=== PATIENT | female | born 1970 | race American Indian/Alaskan Native ===

== ENCOUNTER 2016-12-30 04:49 | Inpatient (IN) | payer BC, MEDICAID ==
--- NOTE | 2016-12-30 05:14 | C.PDOC ---
History Of Present Illness 46 y/o female presents to ED with complaint of vague chest discomfort since last night. Patient reports having a few cocktails and wide variety of food. Patient brought in by ambulance, given aspirin and nitro in the field. Denies URI symptoms, shortness of breath, nausea, vomiting, diaphoresis, or other associated symptoms. Time Seen by Provider: 12/30/16 05:07 Chief Complaint (Nursing): Chest Pain History Per: Patient History/Exam Limitations: no limitations Onset/Duration Of Symptoms: Days Current Symptoms Are (Timing): Still Present Quality: Other (Discomfort) Associated Symptoms: denies: Nausea, Dyspnea, Diaphoresis Nitro Therapy Administered: 2, Per EMS Recent travel outside of the [place]: No Past Medical History Reviewed: Historical Data, Nursing Documentation, Vital Signs Vital Signs: Last Vital Signs Temp 98.9 F 12/30/16 05:15 Pulse 83 12/30/16 05:15 Resp 20 12/30/16 05:15 BP 137/83 12/30/16 05:15 Pulse Ox 100 12/30/16 05:48 - Medical History PMH: HTN Family History: States: Unknown Family Hx - Social History Hx Tobacco Use: No Hx Alcohol Use: No Hx Substance Use: No - Immunization History Hx Tetanus Toxoid Vaccination: No Hx Influenza Vaccination: No Hx Pneumococcal Vaccination: No Review Of Systems Except As Marked, All Systems Reviewed And Found Negative. Constitutional: Positive for: Other (10lb weight gain recently). Negative for: Fever, Chills Cardiovascular: Positive for: Chest Pain. Negative for: Palpitations, Edema Respiratory: Negative for: Cough, Shortness of Breath, Wheezing Gastrointestinal: Negative for: Nausea, Vomiting, Abdominal Pain Skin: Negative for: Rash Neurological: Negative for: Headache, Dizziness Physical Exam - Physical Exam Appears: Non-toxic, No Acute Distress, Other (obese) Skin: Normal Color, Warm, Dry Head: Atraumatic, Normacephalic Oral Mucosa: Moist Chest: Symmetrical Cardiovascular: Rhythm Regular, No Murmur Respiratory: Normal Breath Sounds, No Rales, No Rhonchi, No Wheezing Gastrointestinal/Abdominal: Soft, No Tenderness Back: Normal Inspection Extremity: Normal ROM, Capillary Refill (< 2 sec. ) Neurological/Psych: Oriented x3, Normal Speech, Normal Cognition ED Course And Treatment - Laboratory Results Result Diagrams: 12/30/16 05:26 12/30/16 05:26 Lab Interpretation: Abnormal (trop 0.074) ECG: Interpreted By Me ECG Rhythm: Sinus Rhythm, R BBB ECG Interpretation: Abnormal (no prior to compare) Rate From EC (bpm) O2 Sat by Pulse Oximetry: 100 (RA) Pulse Ox Interpretation: Normal Medical Decision Making Medical Decision Making: story and presentation c/w angina 0630: d/w Dr. Connors- Hospitalist Anodic Operator- ok to Tele obs Ok with Lovenox and NTP, ASA given by BLS Disposition Doctor Will See Patient In The: Hospital Counseled Patient/Family Regarding: Studies Performed, Diagnosis - Disposition Disposition: HOSPITALIZED Disposition Time: 06:30 Condition: GOOD - Clinical Impression Clinical Impression: Chest discomfort, Elevated troponin level - Scribe Statement The provider has reviewed the documentation as recorded by the Chris Bryant Provider Scribe Attestation: All medical record entries made by the Scribe were at my direction and personally dictated by me. I have reviewed the chart and agree that the record accurately reflects my personal performance of the history, physical exam, medical decision making, and the department course for this patient. I have also personally directed, reviewed, and agree with the discharge instructions and disposition.
[2016-12-30 05:31] LABS: BASO % 0.3 % (0.0-2.0); EOS # 0.1 K/uL (0.0-0.7); LYMPH # 3.9 K/uL (1.0-4.3); LYMPH % 32.1 % (20.0-40.0); MEAN CELL VOLUME 89.9 fL (81.0-99.0); MEAN CORPUSCULAR HEMOGLOBIN 29.7 pg (27.0-31.0); MEAN CORPUSCULAR HGB CONC 33.1 g/dL (33.0-37.0); MEAN PLATELET VOLUME 9.6 fL (7.2-11.7); MONO # 0.7 K/uL (0.0-0.8); MONO % 5.7 % (0.0-10.0); RED CELL DISTRIBUTION WIDTH 12.7 % (11.5-14.5); WHITE BLOOD COUNT 12.1 K/uL (4.8-10.8)
[2016-12-30 05:38] LABS: RBC URINE 3 /hpf (0-3); URINE BILIRUBIN NEGATIVE (NEGATIVE); URINE BLOOD 1+ (NEGATIVE); URINE COLOR Yellow (YELLOW); URINE GLUCOSE (UA) NORMAL (Normal); URINE KETONE NEGATIVE (NEGATIVE); URINE LEUKOCYTE ESTERASE NEG Leu/uL (Negative); URINE PROTEIN NEGATIVE (NEGATIVE); URINE UROBILINOGEN NORMAL mg/dL (0.2-1.0); WBC URINE 1 /hpf (0-5)
[2016-12-30] MEDS ORDERED: Alum-Mag Hydrox-Simethicone Susp (30 mL) PO STA (05:40)
[2016-12-30 05:41] LABS: CHLORIDE 99 mmol/L (98-107)
[2016-12-30 05:42] LABS: POTASSIUM 3.1 mmol/L (3.6-5.2); SODIUM 138 mmol/L (132-148)
[2016-12-30 05:44] LABS: ALB/GLOB RATIO 1.2 (1.0-2.1); ALKALINE PHOSPHATASE 72 U/L (38-126); AST/SGOT 21 U/L (14-36); BILIRUBIN,TOTAL 0.3 mg/dL (0.2-1.3); BLOOD UREA NITROGEN 15 mg/dL (7-17); CARBON DIOXIDE 23 mmol/L (22-30); GFR AFRICAN-AMERICAN > 60; TOTAL PROTEIN 8.3 g/dL (6.3-8.3)
[2016-12-30 05:45] LABS: ALCOHOL SERUM < 10 mg/dl (0-10); ALT/SGPT 6 U/L (9-52); CALCIUM 9.1 mg/dl (8.6-10.4); GLUCOSE,RANDOM 137 mg/dL (65-105)
[2016-12-30] MEDS ORDERED: Aluminum Hydroxide/Magnesium Hydroxide Susp (30 mL) ONE (05:45)
[2016-12-30] MEDS ORDERED: Nitroglycerin 2% Ointment Foilpak UD TOP STA (06:30)
[2016-12-30] MEDS ORDERED: Nitroglycerin 2% Ointment Foilpak UD TOP ONE (06:35)
--- NOTE | 2016-12-30 07:12 | CP.PCM.HP ---
Past Patient History - Past Social History Smoking Status: Never Smoked - CARDIAC Hx Hypertension: Yes - PSYCHIATRIC Hx Substance Use: No Meds Allergies/Adverse Reactions: Allergies Allergy/AdvReac Type Severity Reaction Status Date / Time No Known Allergies Allergy Verified 12/30/16 05:03 Results - Vital Signs Recent Vital Signs: Last Vital Signs Temp 97.1 F L 12/30/16 07:01 Pulse 93 H 12/30/16 07:01 Resp 20 12/30/16 07:01 BP 145/77 12/30/16 07:01 Pulse Ox 100 12/30/16 07:01 - Labs Result Diagrams: 12/30/16 05:26 12/30/16 05:26
[2016-12-30] MEDS ORDERED: Potassium Chloride 20 mEq ER Tab PO ONE ×4 (07:30→14:56)
--- NOTE | 2016-12-30 08:13 | RAD ---
PROCEDURE: CHEST RADIOGRAPH, 1 VIEW HISTORY: SOB COMPARISON: None available. FINDINGS: LUNGS: Clear. PLEURA: No pneumothorax or pleural fluid seen. CARDIOVASCULAR: Normal. OSSEOUS STRUCTURES: No significant abnormalities. VISUALIZED UPPER ABDOMEN: Normal. OTHER FINDINGS: None. IMPRESSION: No active disease.
[2016-12-30] MEDS ORDERED: Nitroglycerin 2% Ointment Foilpak UD TOP PRN (12:20)
--- NOTE | 2016-12-30 12:55 | CP.PCM.CON ---
History of Present Illness - History of Present Illness History of Present Illness: ICU consult note for stenotype operator, Dr. Olson Patient is a 46 year old female, with PMHx of HTN and hyperlipidemia, who presents to [facility] emergency department for chest pain. Pt was brought in by ambulance, and was given aspirin/nitroglycerin in the field. Pt reports the chest pain began two days prior, "while she was painting her bathroom" and dismissed the pain as "gas pain/muscle pull." The pain worsened over the course of the two days, and was unresponsive to over the counter NSAIDs/TUMS. Pt describes the pain as an intermittent, sharp, crampy feeling, located in her mid sternal region, that does not radiate, which she initially rated as a '10/10 ,' but on exam has decreased to a 3/10. She admits associated shortness of breath when the chest pain worsened this AM. She denies ever having chest pain/ SOB like this before. She denies stressful activities/heavy lifting recently. She admits being diagnosed with hyperlipidemia 4 years ago and taking Lipitor daily, which was stopped 2 years ago by her PMD. She denies knowing the reason for why the statin was stopped. Pt denies palpitations, diaphoresis, abdominal pain, nausea, vomiting, or fever/chills. PMD: Dr. Ollie Miller PMHx: HTN (diagnosed 3 years ago), Hyperlipidemia (diagnosed 4 years ago, formerly on Lipitor 10mg, but d/c by PMD 2 yrs ago) PSHx: SHx: denies smoking, admits occasional 'social' alcohol use, denies Allergies:NKA Home meds: Losartan 12.5mg Daily, ASA 81mg Daily Review of Systems - Constitutional Constitutional: absent: Chills, Fever - EENT Eyes: absent: Change in Vision Ears: absent: Decreased Hearing Nose/Mouth/Throat: absent: Nasal Congestion, Sore Throat - Cardiovascular Cardiovascular: Chest Pain (intermittent, sharp, "cramp-like pain"; 10/10 this AM, better with NTG), Dyspnea (this AM associated with CP). absent: Dyspnea on Exertion, Edema, Leg Edema - Respiratory Respiratory: absent: Cough, Chest Congestion - Gastrointestinal Gastrointestinal: absent: Abdominal Pain, Dyspepsia, Dysphagia, Nausea, Vomiting - Genitourinary Genitourinary: absent: Dysuria Past Patient History - Past Social History Smoking Status: Never Smoked - CARDIAC Hx Hypertension: Yes - PSYCHIATRIC Hx Substance Use: No Meds Allergies/Adverse Reactions: Allergies Allergy/AdvReac Type Severity Reaction Status Date / Time No Known Allergies Allergy Verified 12/30/16 05:03 - Medications Medications: Current Medications Aspirin (Ecotrin) 81 mg PO DAILY [facility] Enoxaparin Sodium (Lovenox) 90 mg SC Q12 [facility] Famotidine (Pepcid) 20 mg IVP Q12 [facility] Last Admin: 12/30/16 11:40 Dose: 20 mg Metoprolol Tartrate (Lopressor) 25 mg PO BID [facility] Nitroglycerin (Nitro-Bid 2% Oint) 1 ea TOP Q6H PRN PRN Reason: pain Ondansetron HCl (Zofran Inj) 4 mg IVP Q6H PRN PRN Reason: Nausea/Vomiting Last Admin: 12/30/16 11:00 Dose: 4 mg Physical Exam - Constitutional Appears: Non-toxic, No Acute Distress Additional comments: Excess body habitus noted - Head Exam Head Exam: ATRAUMATIC, NORMAL INSPECTION, NORMOCEPHALIC - Eye Exam Eye Exam: EOMI Pupil Exam: PERRL - ENT Exam ENT Exam: Mucous Membranes Moist - Neck Exam Neck exam: Positive for: Normal Inspection Additional comments: no jvd - Respiratory Exam Respiratory Exam: Clear to Auscultation Bilateral, NORMAL BREATHING PATTERN. absent: Decreased Breath Sounds, Rales, Rhonchi, Wheezes - Cardiovascular Exam Cardiovascular Exam: REGULAR RHYTHM, +S1, +S2 - GI/Abdominal Exam GI & Abdominal Exam: Normal Bowel Sounds, Soft. absent: Tenderness - Extremities Exam Extremities exam: Positive for: normal inspection, pedal pulses present. Negative for: pedal edema, tenderness - Back Exam Back exam: tenderness (T5-T10 TTP). absent: rash noted - Neurological Exam Neurological exam: Alert, CN II-XII Intact, Oriented x3 - Psychiatric Exam Psychiatric exam: Normal Affect, Normal Mood - Skin Skin Exam: Dry, Normal Color, Warm Results - Vital Signs Recent Vital Signs: Last Vital Signs Temp 97.1 F L 12/30/16 07:01 Pulse 84 12/30/16 09:00 Resp 16 12/30/16 09:00 BP 143/69 12/30/16 09:00 Pulse Ox 100 12/30/16 09:00 - Labs Result Diagrams: 12/30/16 05:26 12/30/16 05:26 Labs: Laboratory Results - last 24 hr 12/30/16 11:46 Total Creatine Kinase 1021 H CK-MB (Mass) 36.0 H Troponin I, Quant 5.0100 H* Assessment & Plan - Assessment and Plan (Free Text) Assessment: 46F with PMHx of HTN, Hyperlipidemia, who presents to ED for chest pain. 2nd troponin elevated. Plan: Pt STATUS: Full code, Admitted to ICU Neuro: AAOx3 CV: ACS Elevated troponin (0.074 > 5.01) - f/u third troponin EKG (12/30/16): NSR. Possible Lt atrial enlargement. Incomplete RBBB. LVH with repolarization abnormality. Nitroglycerin and ASA 325mg PO in field Start Crestor 20mg PO Daily, ASA 325mg PO Daily, Lopressor 25mg PO BID Continue home Losartan 12.5mg PO daily BNP: 104 f/u ECHO f/u Lipid panel, HgbA1c, D-dimer, PT/PTT Cardiology Consult: Dr. Johnson, help appreciated - f/u reccs Hx HTN - continue home Losartan 12.5mg PO daily - start Lopressor 25mg PO BID GI: Heart Healthy Diet Nausea Prophylaxis - Zofran 4mg IV PRN Pulm: O2 sat: 100% on rm air CXR (12/30/16): NAD /Renal: NS @ 100ml/hr Hypokalemia - 3.1 on AM labs - Kdur 40mg x 2 UA: 1+ blood, LE/nitrate negative - HCG negative UDS: negative Prophylaxis: SCDs Pepcid 20mg IV Q12 Lovenox 90mg SC Q12
[2016-12-30] MEDS ORDERED: Enoxaparin 60 mg Syringe ONE (13:00)
[2016-12-30] MEDS ORDERED: Enoxaparin 30 mg Syringe ONE (13:00)
[2016-12-30] MEDS ORDERED: Enoxaparin 80 mg Syringe SC SCH (13:00)
--- NOTE | 2016-12-30 13:31 | CARD ---
APPROVED REPORT EKG Measurement Heart [id number] <Conclusion> Normal sinus rhythm Possible Left atrial enlargement Incomplete right bundle branch block Left ventricular hypertrophy with repolarization abnormality Abnormal ECG
[2016-12-30] MEDS ORDERED: Potassium Chloride 20 mEq ER Tab PO SCH (14:30)
--- NOTE | 2016-12-30 14:46 | CP.PCM.HP ---
<Jese Claire - Last Filed: 12/30/16 14:43> History of Present Illness - History of Present Illness History of Present Illness: H&P note for hospitalist, Dr. Horn Patient is a 46 year old female, with PMHx of HTN and hyperlipidemia, who presents to [facility] emergency department for chest pain. Pt was brought in by ambulance, and was given aspirin/nitroglycerin in the field. Pt reports the chest pain began two days prior, "while she was painting her bathroom" and dismissed the pain as "gas pain/muscle pull." The pain worsened over the course of the two days, and was unresponsive to over the counter NSAIDs/TUMS. Pt describes the pain as an intermittent, sharp, crampy feeling, located in her mid sternal region, that does not radiate, which she initially rated as a '10/10 ,' but on exam has decreased to a 3/10. She admits associated shortness of breath when the chest pain worsened this AM. She denies ever having chest pain/ SOB like this before. She denies stressful activities/heavy lifting recently. She admits being diagnosed with hyperlipidemia 4 years ago and taking Lipitor daily, which was stopped 2 years ago by her PMD. She denies knowing the reason for why the statin was stopped. Pt denies palpitations, diaphoresis, abdominal pain, nausea, vomiting, or fever/chills. PMD: Dr. Ollie Miller PMHx: HTN (diagnosed 3 years ago), Hyperlipidemia (diagnosed 4 years ago, formerly on Lipitor 10mg, but d/c by PMD 2 yrs ago) PSHx: SHx: denies smoking, admits occasional 'social' alcohol use, denies Allergies:NKA Home meds: Losartan 12.5mg Daily, ASA 81mg Daily Present on Admission - Present on Admission Any Indicators Present on Admission: No Review of Systems - Constitutional Constitutional: absent: Chills, Fever - EENT Eyes: absent: Change in Vision Ears: absent: Decreased Hearing Nose/Mouth/Throat: absent: Nasal Congestion, Sore Throat - Cardiovascular Cardiovascular: Chest Pain (intermittent, sharp, "cramp-like pain"; 10/10 this AM, better with NTG), Dyspnea (this AM associated with CP). absent: Edema, Leg Edema - Respiratory Respiratory: Dyspnea. absent: Dyspnea on Exertion - Gastrointestinal Gastrointestinal: absent: Abdominal Pain, Nausea, Vomiting - Genitourinary Genitourinary: absent: Dysuria - Musculoskeletal Musculoskeletal: absent: Back Pain, Numbness, Tingling - Neurological Neurological: absent: Confusion, Tingling, Weakness - Endocrine Endocrine: absent: Polydipsia, Polyphagia, Polyuria Past Patient History - Past Social History Smoking Status: Never Smoked - CARDIAC Hx Hypertension: Yes - PSYCHIATRIC Hx Substance Use: No Meds Allergies/Adverse Reactions: Allergies Allergy/AdvReac Type Severity Reaction Status Date / Time No Known Allergies Allergy Verified 12/30/16 05:03 Physical Exam - Constitutional Appears: Non-toxic, No Acute Distress Additional comments: Excess body habitus noted - Head Exam Head Exam: absent: ATRAUMATIC, NORMAL INSPECTION, NORMOCEPHALIC - Eye Exam Eye Exam: EOMI Pupil Exam: PERRL - Neck Exam Neck exam: Positive for: Normal Inspection Additional comments: no jvd - Respiratory Exam Respiratory Exam: Clear to Auscultation Bilateral, NORMAL BREATHING PATTERN. absent: Decreased Breath Sounds, Rales, Rhonchi, Wheezes - Cardiovascular Exam Cardiovascular Exam: REGULAR RHYTHM, +S1, +S2 - GI/Abdominal Exam GI & Abdominal Exam: Normal Bowel Sounds, Soft. absent: Tenderness - Extremities Exam Extremities exam: Positive for: normal inspection, pedal pulses present. Negative for: pedal edema, tenderness - Back Exam Back exam: NORMAL INSPECTION - Neurological Exam Neurological exam: Alert, CN II-XII Intact, Oriented x3 - Psychiatric Exam Psychiatric exam: Anxious (appropriate given diagnosis) - Skin Skin Exam: Normal Color, Warm Results - Vital Signs Recent Vital Signs: Last Vital Signs Temp 97.5 F L 12/30/16 13:00 Pulse 74 12/30/16 13:00 Resp 16 12/30/16 13:00 BP 147/66 12/30/16 13:00 Pulse Ox 100 12/30/16 13:00 - Labs Result Diagrams: 12/30/16 05:26 12/30/16 05:26 Labs: Laboratory Results - last 24 hr 12/30/16 11:46 Total Creatine Kinase 1021 H CK-MB (Mass) 36.0 H Troponin I, Quant 5.0100 H* Assessment & Plan - Assessment and Plan (Free Text) Assessment: 46F with PMHx of HTN, Hyperlipidemia, who presents to ED for chest pain. 2nd troponin elevated. NSTEMI. Plan: Pt Status: Full code, Admit to ICU ACS Elevated troponin (0.074 > 5.01), CKMB 36, CPK (1021) - f/u 3rd ANTONIO EKG (12/30/16): NSR. Possible Lt atrial enlargement. Incomplete RBBB. LVH with repolarization abnormality. CXR (12/30/16): NAD BNP: 104 UDS negative f/u ECHO f/u Lipid panel, HgbA1c, D-dimer, PT/PTT Nitroglycerin and ASA 325mg PO in field Start Crestor 20mg PO Daily, ASA 325mg PO Daily, Lopressor 25mg PO BID Continue home Losartan 12.5mg PO daily Cardiology Consult: Dr. Johnson, cullen appreciated - f/u reccs Leukocytosis afebrile WBC 12.1 on AM labs CXR (12/30/16): NAD HTN Normotensive in ED - continue home Losartan 12.5mg PO daily - start Lopressor 25mg PO BID Electrolyte abnormalities Hypokalemia - 3.1 on AM labs - Kdur 40mg x 2 Prophylaxis: SCDs Pepcid 20mg IV Q12 Lovenox 90mg SC Q12 Heart Healthy Diet <KoryWilfrid M - Last Filed: 12/30/16 15:12> Results - Vital Signs Recent Vital Signs: Last Vital Signs Temp 97.5 F L 12/30/16 13:00 Pulse 79 12/30/16 15:05 Resp 16 12/30/16 15:05 BP 158/80 H 12/30/16 15:05 Pulse Ox 100 12/30/16 15:05 - Labs Result Diagrams: 12/30/16 05:26 12/30/16 05:26 Labs: Laboratory Results - last 24 hr 12/30/16 11:46 Total Creatine Kinase 1021 H CK-MB (Mass) 36.0 H Troponin I, Quant 5.0100 H* Attending/Attestation - Attestation I have personally seen and examined this patient.: Yes I have fully participated in the care of the patient.: Yes I have reviewed all pertinent clinical information: Yes Notes (Text): 12/30/16 15:10 Patient was seen and examined at bedside with the resident at the time of admission Patient still complains of chest pain that is radiating to the back. Patient also has nausea and vomiting. Troponins were repeated and it increased to 5. Patient started on ACS protocol with the therapeutic Lovenox, aspirin, beta lilly, statin. Patient transferred to ICU. Cardiology consultation requested. Follow-up further recommendations of cardiology. Discussed with ICU attending and ICU resident. Discussed with the admitting resident.
--- NOTE | 2016-12-30 15:31 | CARD ---
APPROVED REPORT EXAM: Two-dimensional and M-mode echocardiogram with Doppler and color Doppler. Other Information Quality : ExcellentGoodRhythm : NSR INDICATION Chest Pain TROPONN M-Mode DIMENSIONS RVDd2.01 (2.1-3.2cm)Left Atrium (MM)4.16 (2.5-4.0cm) IVSd0.90 (0.7-1.1cm)Aortic Root2.71 (2.2-3.7cm) LVDd5.45 (4.0-5.6cm)Aortic Cusp Exc.1.94 (1.5-2.0cm) PWd0.76 (0.7-1.1cm)FS (%) 31 % LVDs3.78 (2.0-3.8cm)LVEF (%)58 (>50%) Mitral Valve MV E Ocqzduzy92.6cm/sMV A Oblnwqur76.7cm/sE/A ratio1.0 TDI E/Lateral E'0.0E/Medial E'0.0 Tricuspid Valve TR Peak Edjnawhw450wl/sTR Peak [id number] LEFT VENTRICLE The left ventricle is normal size. There is normal left ventricular wall thickness. The left ventricular function is normal. The left ventricular ejection fraction is within the normal range. There is normal LV segmental wall motion. Transmitral Doppler flow pattern is Grade I-abnormal relaxation pattern. RIGHT VENTRICLE The right ventricle is normal size. There is normal right ventricular wall thickness. The right ventricular systolic function is normal. ATRIA The left atrium size is normal. The right atrium size is normal. AORTIC VALVE The aortic valve is normal in structure. No aortic regurgitation is present. MITRAL VALVE The mitral valve is mildly thickened. Mitral regurgitation is trace. TRICUSPID VALVE There is moderate to severe tricuspid regurgitation. There is moderate to severe pulmonary hypertension. GREAT VESSELS The aortic root is normal in size. The IVC is normal in size and collapses >50% with inspiration. PERICARDIAL EFFUSION There is no pericardial effusion. <Conclusion> The left ventricle is normal size. There is normal left ventricular wall thickness. The left ventricular function is normal. The left ventricular ejection fraction is within the normal range. There is normal LV segmental wall motion. Transmitral Doppler flow pattern is Grade I-abnormal relaxation pattern. There is moderate to severe tricuspid regurgitation. There is moderate to severe pulmonary hypertension.
[2016-12-30] MEDS: Enoxaparin 100 mg Syringe SC SCH (22:05)
--- NOTE | 2016-12-30 22:07 | CP.PCM.CON ---
History of Present Illness - History of Present Illness History of Present Illness: 46 year old female admitted with chest pain for the the last three days in the right precordial region inconsistently related to exertion moderate to severe in intensity without radiation; unrelated to ingestion inspiration arm movement ; she travelled to [place] ignoring the pain; due to persistence she presented to the ER at [facility] On questioning did report some shortness of breath Denied palpitations dizziness syncope edema, dysarthria leg claudication renal failure She does not exercise but did report using a bike some days back Systems review: weight gain Past medical history significant for systemic hypertension for the last seven years;hyprlipidemia x 4 years Past surgical: She denied smoking alcohol or drug abuse Medications; aspirin statin Allergies: "sinus' She had five uneventful pregnancies and a ; her last delivery was in 2014; her periods are regular; last menstrual period was 2 days back She works for the [email or web address] Mother at age 73 of a 'heart attack' Father she is unaware She had 12 siblings; a brother of 'aids' and a sister from liver failure Past Patient History - Past Medical History & Family History Past Medical History?: Yes - Past Social History Smoking Status: Never Smoked - CARDIAC Hx Cardiac Disorders: Yes Hx Hypertension: Yes Other/Comment: hyperlipidemia - PULMONARY Hx Respiratory Disorders: No - NEUROLOGICAL Hx Neurological Disorder: No - HEENT Hx HEENT Problems: No - RENAL Hx Chronic Kidney Disease: No - ENDOCRINE/METABOLIC Hx Endocrine Disorders: No - HEMATOLOGICAL/ONCOLOGICAL Hx Blood Disorders: No - INTEGUMENTARY Hx Dermatological Problems: No - MUSCULOSKELETAL/RHEUMATOLOGICAL Hx Musculoskeletal Disorders: No Hx Falls: No - GASTROINTESTINAL Hx Gastrointestinal Disorders: No - GENITOURINARY/GYNECOLOGICAL Hx Genitourinary Disorders: No - PSYCHIATRIC Hx Psychophysiologic Disorder: No Hx Substance Use: No - SURGICAL HISTORY Hx Surgeries: Yes Hx Section: Yes (2 years ago) - ANESTHESIA Hx Anesthesia: Yes Hx Anesthesia Reactions: No Hx Malignant Hyperthermia: No Has any member of the family had a problem w/ anesthesia?: No Meds Allergies/Adverse Reactions: Allergies Allergy/AdvReac Type Severity Reaction Status Date / Time No Known Allergies Allergy Verified 12/30/16 05:03 - Medications Medications: Current Medications Aspirin (Ecotrin) 81 mg PO DAILY [facility] Enoxaparin Sodium (Lovenox) 90 mg SC Q12 [facility] Last Admin: 12/30/16 22:05 Dose: 90 mg Famotidine (Pepcid) 20 mg IVP Q12 [facility] Last Admin: 12/30/16 22:05 Dose: 20 mg Losartan Potassium (Cozaar) 25 mg PO DAILY [facility] Metoprolol Tartrate (Lopressor) 50 mg PO BID [facility] Nitroglycerin (Nitro-Bid 2% Oint) 1 ea TOP Q6H PRN PRN Reason: pain Ondansetron HCl (Zofran Inj) 4 mg IVP Q6H PRN PRN Reason: Nausea/Vomiting Last Admin: 12/30/16 20:35 Dose: 4 mg Physical Exam - Eye Exam Eye Exam: EOMI - ENT Exam ENT Exam: Mucous Membranes Moist, Normal Exam - Neck Exam Neck exam: Positive for: Normal Inspection Additional comments: Normal venous pressure No neck bruits No goiter - Respiratory Exam Additional comments: Trachea central Normal percussion note Normal breath sounds - Cardiovascular Exam Additional comments: PMI could not be localized No parasternal heave No chest tenderness No scars/implanted device Normal heart sounds No rub - GI/Abdominal Exam GI & Abdominal Exam: Normal Bowel Sounds, Soft - Extremities Exam Additional comments: No edema Distal pulse +=+ No clubbing - Neurological Exam Neurological exam: Oriented x3 Results - Vital Signs Recent Vital Signs: Last Vital Signs Temp 98 F 12/30/16 20:00 Pulse 65 12/30/16 21:30 Resp 25 H 12/30/16 21:30 BP 143/80 12/30/16 21:30 Pulse Ox 100 12/30/16 21:30 - Labs Result Diagrams: 12/30/16 05:26 12/30/16 22:43 Labs: Laboratory Results - last 24 hr 12/30/16 12/30/16 11:46 17:00 D-Dimer, Quantitative < 200 Total Creatine Kinase 1021 H 2355 H CK-MB (Mass) 36.0 H 55.0 H Troponin I, Quant 5.0100 H* 15.3000 H* - EKG Data EKG comments: Sinus ?left atrial enlargement LVH - Impressions Impression: Echo: Trace pericardial effusion prominent coronary sinus Pulmonary hypertension moderate tricuspid incompetence Assessment & Plan - Assessment and Plan (Free Text) Assessment: Cased reviewed Intriguing chest pain syndrome on a background of soft vascular risk factors in a premenopausal woman with unremarkable physical examination, negative tox screen normal D dimers, subtle EKG changes, normal regional and global left ventricular function, normal diastolic pressures, moderate pulmonary hypertension, normal right sided chamber dimensions, absence of an intracardiac shunt This profile with disparate data points is difficult to reconcile Chest pain syndrome: likely cardiac/pericardial although no definitive pleuritic component; negative d-dimers argues against PE; no suggestion of dissection Elevated serum troponin: disproportionate to her symptoms EKG changes and LV systolic function; no definitive suggestion of pulmonary embolism, stress cardiomyopathy, chest trauma or a toxic factor; likely myopericarditis if coronary disease is excluded; of note trace pericardial effusion Pulmonary hypertension: a major clinical disconnect; likely a 'primary' pulmonary process; ?vascular; no suggestion of airway/parenchymal/obesity/sleep apnea Systemic hypertension: mild; 'essential' Hyperlipidemia Obesity Prominent coronary sinus: differentials include a left sided SVC and a rare unroofed ASD Plan Continue with aspriin plavix heparin/lovenox statin and beta blockers CT angio with PE protocol if negative Right/Left cardiac cath
[2016-12-30 22:59] LABS: CHLORIDE 99 mmol/L (98-107); SODIUM 136 mmol/L (132-148)
[2016-12-30 23:00] LABS: POTASSIUM 3.8 mmol/L (3.6-5.2)
[2016-12-30 23:02] LABS: CARBON DIOXIDE 23 mmol/L (22-30); GFR AFRICAN-AMERICAN > 60
[2016-12-30 23:03] LABS: BLOOD UREA NITROGEN 9 mg/dL (7-17); CALCIUM 9.9 mg/dl (8.6-10.4); GLUCOSE,RANDOM 139 mg/dL (65-105); MAGNESIUM 2.2 mg/dL (1.6-2.3); PHOSPHOROUS 3.4 mg/dL (2.5-4.5)
[2016-12-31 06:48] LABS: CHLORIDE 100 mmol/L (98-107); SODIUM 138 mmol/L (132-148)
[2016-12-31 06:50] LABS: CHOLESTEROL 304 mg/dL (0-199); GFR AFRICAN-AMERICAN > 60
[2016-12-31 06:51] LABS: ALB/GLOB RATIO 1.2 (1.0-2.1); ALKALINE PHOSPHATASE 75 U/L (38-126); ALT/SGPT 28 U/L (9-52); AST/SGOT 244 U/L (14-36); BILIRUBIN,TOTAL 0.6 mg/dL (0.2-1.3); BLOOD UREA NITROGEN 10 mg/dL (7-17); CARBON DIOXIDE 26 mmol/L (22-30); GLUCOSE,RANDOM 126 mg/dL (65-105); TOTAL PROTEIN 8.8 g/dL (6.3-8.3)
[2016-12-31 06:52] LABS: CALCIUM 9.5 mg/dl (8.6-10.4); MAGNESIUM 2.2 mg/dL (1.6-2.3); PHOSPHOROUS 3.8 mg/dL (2.5-4.5)
[2016-12-31 06:53] LABS: BASO % 0.3 % (0.0-2.0); EOS % 0.3 % (0.0-4.0); HEMATOCRIT 38.5 % (34.0-47.0); LYMPH # 2.8 K/uL (1.0-4.3); LYMPH % 21.6 % (20.0-40.0); MEAN CELL VOLUME 90.7 fL (81.0-99.0); MEAN CORPUSCULAR HEMOGLOBIN 29.4 pg (27.0-31.0); MEAN CORPUSCULAR HGB CONC 32.4 g/dL (33.0-37.0); MONO # 0.8 K/uL (0.0-0.8); MONO % 6.4 % (0.0-10.0); RED CELL DISTRIBUTION WIDTH 13.2 % (11.5-14.5); WHITE BLOOD COUNT 13.1 K/uL (4.8-10.8)
[2016-12-31] MEDS: Enoxaparin 100 mg Syringe SC SCH ×2 (09:06→22:30)
[2016-12-31 09:15] LABS: INR 1.1
[2016-12-31] MEDS ORDERED: Losartan 12.5 MG TAB PO SCH (10:00)
--- NOTE | 2016-12-31 11:57 | CP.CCUPN ---
Addendum entered and electronically signed by Jese Claire DO 12/31/16 17:24: CT Angio: negative for PE Pt is tentatively scheduled for Cardiac Cath at 1pm tomorrow (01/01) with Dr. Fletcher Original Note: <Jese Claire - Last Filed: 12/31/16 14:46> CCU Subjective - Physician Review Subjective (Free Text): 12/31/16 11:51 Pt seen and examined at bedside. She denies chest pain, palpitations, SOB, abdominal pain, nausea, this AM. Hemoglobin A1c came back elevated, and pt was made aware of diagnosis of diabetes. Lengthy discussion was had with pt about importance of diet change, exercise, and medication moving forward. Pt is for CT Angio to r/o PE today per recommendation of cardiology. Pt is low risk per Wells criteria, but severe pulmonary hypertension was seen on ECHO. Pt' s at bedside states pt snores often, so she will be given prescription for outpatient sleep study. Critical Care Time Spent (in minutes): 45 CCU Objective - Vital Signs / Intake & Output Vital Signs (Last 4 hours): Vital Signs Temp Pulse Resp BP Pulse Ox 12/31/16 11:01 61 17 109/66 100 12/31/16 11:00 61 17 100 12/31/16 10:01 62 16 126/84 100 12/31/16 10:00 64 13 100 12/31/16 09:01 78 20 127/72 100 12/31/16 09:00 73 16 100 12/31/16 08:01 68 18 108/69 100 12/31/16 08:00 98.1 F 66 24 100 Intake and Output (Last 8hrs): Intake & Output 12/30/16 12/31/16 12/31/16 22:59 06:59 14:59 Intake Total 600 50 Output Total 350 350 200 Balance 250 -350 -150 Weight 194 lb 0.108 oz Intake: Oral 600 50 Output: Urine 350 350 200 Urine, Voided 350 350 200 Other: Voiding Method Bedpan # Voids Urine, Voided 2 1 - Physical Exam Narrative Physical Exam (Free Text): 12/31/16 11:58 excess body habitus is noted Head: Positive for: Atraumatic, Normocephalic Pupils: Positive for: PERRL Extroacular Muscles: Positive for: EOMI Conjunctiva: Positive for: Normal Mouth: Positive for: Moist Mucous Membranes Neck: Positive for: Normal Range of Motion. Negative for: JVD Respiratory/Chest: Positive for: Clear to Auscultation. Negative for: Respiratory Distress, Accessory Muscle Use, Rales, Retracting, Rhonchi Cardiovascular: Positive for: Regular Rate and Rhythm, Normal S1, S2. Negative for: Murmurs Abdomen: Positive for: Normal Bowel Sounds. Negative for: Tenderness, Distention Upper Extremity: Positive for: Normal Inspection. Negative for: Edema Lower Extremity: Positive for: Normal Inspection. Negative for: Edema Neurological: Positive for: CN II-XII Intact, Speech Normal Skin: Positive for: Warm, Dry Psychiatric: Positive for: Alert, Oriented x 3 - Medications Active Medications: Active Medications Generic Name Dose Route Start Last Admin Trade Name Freq PRN Reason Stop Dose Admin Aspirin 81 mg 12/31/16 10:00 12/31/16 09:06 Ecotrin PO 81 mg DAILY GUY Administration Enoxaparin Sodium 90 mg 12/30/16 22:00 12/31/16 09:06 Lovenox SC 90 mg Q12 GUY Administration Famotidine 20 mg 12/30/16 11:15 12/31/16 09:06 Pepcid IVP 20 mg Q12 GUY Administration Losartan Potassium 25 mg 12/30/16 18:46 12/31/16 09:06 Cozaar PO 25 mg DAILY GUY Administration Metoprolol Tartrate 50 mg 12/30/16 18:45 12/31/16 09:06 Lopressor PO 50 mg BID GUY Administration Nitroglycerin 1 ea 12/30/16 12:20 Nitro-Bid 2% Oint TOP Q6H PRN pain Ondansetron HCl 4 mg 12/30/16 11:15 12/30/16 20:35 Zofran Inj IVP 4 mg Q6H PRN Administration Nausea/Vomiting - Patient Studies Lab Studies: Lab Studies 12/31/16 12/31/16 12/31/16 Range/Units 06:30 06:30 06:30 WBC (4.8-10.8) K/uL RBC (3.80-5.20) Mil/uL Hgb (11.0-16.0) g/dL Hct (34.0-47.0) % MCV (81.0-99.0) fL MCH (27.0-31.0) pg MCHC (33.0-37.0) g/dL RDW (11.5-14.5) % Plt Count (130-400) K/uL MPV (7.2-11.7) fL Neut % (Auto) (50.0-75.0) % Lymph % (Auto) (20.0-40.0) % Jones % (Auto) (0.0-10.0) % Eos % (Auto) (0.0-4.0) % Baso % (Auto) (0.0-2.0) % Neut # (1.8-7.0) K/uL Lymph # (1.0-4.3) K/uL Jones # (0.0-0.8) K/uL Eos # (0.0-0.7) K/uL Baso # (0.0-0.2) K/uL PT (9.7-12.2) SECONDS INR APTT (21-34) SECONDS D-Dimer, Quantitative (0-243) ng/mlDDU Sodium 138 (132-148) mmol/L Potassium 4.0 (3.6-5.2) mmol/L Chloride 100 (98-107) mmol/L Carbon Dioxide 26 (22-30) mmol/L Anion Gap 17 (10-20) BUN 10 (7-17) mg/dL Creatinine 0.7 (0.7-1.2) MG/DL Est GFR ( Amer) > 60 Est GFR (Non-Af Amer) > 60 Random Glucose 126 H (65-105) mg/dL Hemoglobin A1c 6.5 (4.2-6.5) % Calcium 9.5 (8.6-10.4) mg/dl Phosphorus 3.8 (2.5-4.5) mg/dL Magnesium 2.2 (1.6-2.3) mg/dL Total Bilirubin 0.6 (0.2-1.3) mg/dL AST 244 H D (14-36) U/L ALT 28 (9-52) U/L Alkaline Phosphatase 75 (38-126) U/L Total Creatine Kinase (30-135) U/L CK-MB (Mass) (0.0-3.38) ng/mL Troponin I, Quant (0.00-0.120) ng/mL Total Protein 8.8 H (6.3-8.3) g/dL Albumin 4.8 (3.5-5.0) g/dL Globulin 4.1 H (2.2-3.9) gm/dL Albumin/Globulin Ratio 1.2 (1.0-2.1) Triglycerides 151 H (0-149) mg/dL Cholesterol 304 H (0-199) mg/dL LDL Cholesterol Direct 199 H (0-129) mg/dL HDL Cholesterol 49 (30-70) mg/dL 12/31/16 12/31/16 12/30/16 Range/Units 06:30 06:30 22:43 WBC 13.1 H (4.8-10.8) K/uL RBC 4.24 (3.80-5.20) Mil/uL Hgb 12.5 (11.0-16.0) g/dL Hct 38.5 (34.0-47.0) % MCV 90.7 (81.0-99.0) fL MCH 29.4 (27.0-31.0) pg MCHC 32.4 L (33.0-37.0) g/dL RDW 13.2 (11.5-14.5) % Plt Count 278 (130-400) K/uL MPV 10.0 (7.2-11.7) fL Neut % (Auto) 71.4 (50.0-75.0) % Lymph % (Auto) 21.6 (20.0-40.0) % Jones % (Auto) 6.4 (0.0-10.0) % Eos % (Auto) 0.3 (0.0-4.0) % Baso % (Auto) 0.3 (0.0-2.0) % Neut # 9.4 H (1.8-7.0) K/uL Lymph # 2.8 (1.0-4.3) K/uL Jones # 0.8 (0.0-0.8) K/uL Eos # 0.0 (0.0-0.7) K/uL Baso # 0.0 (0.0-0.2) K/uL PT 12.7 H (9.7-12.2) SECONDS INR 1.1 APTT 38 H (21-34) SECONDS D-Dimer, Quantitative (0-243) ng/mlDDU Sodium 136 (132-148) mmol/L Potassium 3.8 (3.6-5.2) mmol/L Chloride 99 (98-107) mmol/L Carbon Dioxide 23 (22-30) mmol/L Anion Gap 18 (10-20) BUN 9 (7-17) mg/dL Creatinine 0.6 L (0.7-1.2) MG/DL Est GFR ( Amer) > 60 Est GFR (Non-Af Amer) > 60 Random Glucose 139 H (65-105) mg/dL Hemoglobin A1c (4.2-6.5) % Calcium 9.9 (8.6-10.4) mg/dl Phosphorus 3.4 (2.5-4.5) mg/dL Magnesium 2.2 (1.6-2.3) mg/dL Total Bilirubin (0.2-1.3) mg/dL AST (14-36) U/L ALT (9-52) U/L Alkaline Phosphatase (38-126) U/L Total Creatine Kinase 2954 H (30-135) U/L CK-MB (Mass) 39.7 H (0.0-3.38) ng/mL Troponin I, Quant 22.0000 H* (0.00-0.120) ng/mL Total Protein (6.3-8.3) g/dL Albumin (3.5-5.0) g/dL Globulin (2.2-3.9) gm/dL Albumin/Globulin Ratio (1.0-2.1) Triglycerides (0-149) mg/dL Cholesterol (0-199) mg/dL LDL Cholesterol Direct (0-129) mg/dL HDL Cholesterol (30-70) mg/dL 12/30/16 12/30/16 12/30/16 Range/Units 17:00 17:00 11:46 WBC (4.8-10.8) K/uL RBC (3.80-5.20) Mil/uL Hgb (11.0-16.0) g/dL Hct (34.0-47.0) % MCV (81.0-99.0) fL MCH (27.0-31.0) pg MCHC (33.0-37.0) g/dL RDW (11.5-14.5) % Plt Count (130-400) K/uL MPV (7.2-11.7) fL Neut % (Auto) (50.0-75.0) % Lymph % (Auto) (20.0-40.0) % Jones % (Auto) (0.0-10.0) % Eos % (Auto) (0.0-4.0) % Baso % (Auto) (0.0-2.0) % Neut # (1.8-7.0) K/uL Lymph # (1.0-4.3) K/uL Jones # (0.0-0.8) K/uL Eos # (0.0-0.7) K/uL Baso # (0.0-0.2) K/uL PT (9.7-12.2) SECONDS INR APTT (21-34) SECONDS D-Dimer, Quantitative < 200 (0-243) ng/mlDDU Sodium (132-148) mmol/L Potassium (3.6-5.2) mmol/L Chloride (98-107) mmol/L Carbon Dioxide (22-30) mmol/L Anion Gap (10-20) BUN (7-17) mg/dL Creatinine (0.7-1.2) MG/DL Est GFR ( Amer) Est GFR (Non-Af Amer) Random Glucose (65-105) mg/dL Hemoglobin A1c (4.2-6.5) % Calcium (8.6-10.4) mg/dl Phosphorus (2.5-4.5) mg/dL Magnesium (1.6-2.3) mg/dL Total Bilirubin (0.2-1.3) mg/dL AST (14-36) U/L ALT (9-52) U/L Alkaline Phosphatase (38-126) U/L Total Creatine Kinase 2355 H 1021 H (30-135) U/L CK-MB (Mass) 55.0 H 36.0 H (0.0-3.38) ng/mL Troponin I, Quant 15.3000 H* 5.0100 H* (0.00-0.120) ng/mL Total Protein (6.3-8.3) g/dL Albumin (3.5-5.0) g/dL Globulin (2.2-3.9) gm/dL Albumin/Globulin Ratio (1.0-2.1) Triglycerides (0-149) mg/dL Cholesterol (0-199) mg/dL LDL Cholesterol Direct (0-129) mg/dL HDL Cholesterol (30-70) mg/dL Laboratory Results - last 24 hr 12/30/16 12/30/16 12/30/16 11:46 17:00 17:00 WBC RBC Hgb Hct MCV MCH MCHC RDW Plt Count MPV Neut % (Auto) Lymph % (Auto) Jones % (Auto) Eos % (Auto) Baso % (Auto) Neut # Lymph # Jones # Eos # Baso # PT INR APTT D-Dimer, Quantitative < 200 Sodium Potassium Chloride Carbon Dioxide Anion Gap BUN Creatinine Est GFR ( Amer) Est GFR (Non-Af Amer) Random Glucose Hemoglobin A1c Calcium Phosphorus Magnesium Total Bilirubin AST ALT Alkaline Phosphatase Total Creatine Kinase 1021 H 2355 H CK-MB (Mass) 36.0 H 55.0 H Troponin I, Quant 5.0100 H* 15.3000 H* Total Protein Albumin Globulin Albumin/Globulin Ratio Triglycerides Cholesterol LDL Cholesterol Direct HDL Cholesterol 12/30/16 12/31/16 12/31/16 22:43 06:30 06:30 WBC 13.1 H RBC 4.24 Hgb 12.5 Hct 38.5 MCV 90.7 MCH 29.4 MCHC 32.4 L RDW 13.2 Plt Count 278 MPV 10.0 Neut % (Auto) 71.4 Lymph % (Auto) 21.6 Jones % (Auto) 6.4 Eos % (Auto) 0.3 Baso % (Auto) 0.3 Neut # 9.4 H Lymph # 2.8 Jones # 0.8 Eos # 0.0 Baso # 0.0 PT 12.7 H INR 1.1 APTT 38 H D-Dimer, Quantitative Sodium 136 Potassium 3.8 Chloride 99 Carbon Dioxide 23 Anion Gap 18 BUN 9 Creatinine 0.6 L Est GFR ( Amer) > 60 Est GFR (Non-Af Amer) > 60 Random Glucose 139 H Hemoglobin A1c Calcium 9.9 Phosphorus 3.4 Magnesium 2.2 Total Bilirubin AST ALT Alkaline Phosphatase Total Creatine Kinase 2954 H CK-MB (Mass) 39.7 H Troponin I, Quant 22.0000 H* Total Protein Albumin Globulin Albumin/Globulin Ratio Triglycerides Cholesterol LDL Cholesterol Direct HDL Cholesterol 12/31/16 12/31/16 12/31/16 06:30 06:30 06:30 WBC RBC Hgb Hct MCV MCH MCHC RDW Plt Count MPV Neut % (Auto) Lymph % (Auto) Jones % (Auto) Eos % (Auto) Baso % (Auto) Neut # Lymph # Jones # Eos # Baso # PT INR APTT D-Dimer, Quantitative Sodium 138 Potassium 4.0 Chloride 100 Carbon Dioxide 26 Anion Gap 17 BUN 10 Creatinine 0.7 Est GFR ( Amer) > 60 Est GFR (Non-Af Amer) > 60 Random Glucose 126 H Hemoglobin A1c 6.5 Calcium 9.5 Phosphorus 3.8 Magnesium 2.2 Total Bilirubin 0.6 AST 244 H D ALT 28 Alkaline Phosphatase 75 Total Creatine Kinase CK-MB (Mass) Troponin I, Quant Total Protein 8.8 H Albumin 4.8 Globulin 4.1 H Albumin/Globulin Ratio 1.2 Triglycerides 151 H Cholesterol 304 H LDL Cholesterol Direct 199 H HDL Cholesterol 49 EKG/Cardiology Studies: Cardiology / EKG Studies 12/30/16 11:05 ELECTROCARDIOGRAM Stat Comment: Mode Of Transportation: Reason For Exam: chest pain 12/30/16 12:51 EKG [ELECTROCARDIOGRAM] Stat Comment: Mode Of Transportation: Reason For Exam: elevated ANTONIO 12/30/16 17:46 EKG [ELECTROCARDIOGRAM] Timed Comment: Mode Of Transportation: Reason For Exam: chest pain, rule out acs 12/31/16 07:00 EKG [ELECTROCARDIOGRAM] Routine Comment: Mode Of Transportation: PORTABLE Reason For Exam: DX: chest pain Review of Systems - Constitutional Constitutional: absent: Fever, Chills - EENT Eyes: absent: Change in Vision Ears: absent: Decreased Hearing - Cardiovascular Cardiovascular: absent: Chest Pain, Chest Pain at Rest, Dyspnea, Dyspnea on Exertion - Respiratory Respiratory: absent: Cough, Dyspnea - Gastrointestinal Gastrointestinal: absent: Abdominal Pain, Nausea - Genitourinary Genitourinary: absent: Dysuria - Musculoskeletal Musculoskeletal: absent: Back Pain, Numbness, Tingling - Integumentary Integumentary: absent: Wounds - Neurological Neurological: absent: Tingling, Weakness - Endocrine Endocrine: absent: Polydipsia, Polyphagia Critical Care Progress Note - Nutrition Nutrition: Nutrition Category Date Time Status NPO Diet [DIET] Diets 12/31/16 Breakfast Active Assessment/Plan - Assessment and Plan (Free Text) Assessment: 46F with PMHx of HTN, Hyperlipidemia, with new diagnosis of diabetes, who presents to ED for chest pain. Tropininemia. NSTEMI. Started on ASA/Plavix/ Lovenox. ECHO with severe pulmonary HTN. Elevated A1c. Plan: Pt STATUS: Full code, Admitted to ICU Neuro: AAOx3 CV: ACS Elevated troponin (0.074 > 5.01 > 15.30 > 22.00) EKG (12/30/16): NSR. Possible Lt atrial enlargement. Incomplete RBBB. LVH with repolarization abnormality. Nitroglycerin and ASA 325mg PO in field Continue Crestor 20mg PO Daily, ASA 81mg PO Daily, Lopressor 25mg PO BID Continue home Losartan 12.5mg PO daily ECHO (12/30/16): LV normal size, wall thickness, and function. EF WNL (58%). Normal LV segmental wall motion. Moderate to severe tricuspid regurgitation. Moderate to severe pulmonary HTN. (see full report) D-dimer: negative BNP: 104 Lipid panel: Triglycerides 151, Cholesterol 304, LDL 199, HDL 49 Nitroglycerin 2% Q6H PRN Cardiology Consult: Dr. Johnson, help appreciated - f/u recommended CT Angio: PE protocol - if negative, Cardiac Cath - f/u recommended additional ANTONIO panel Hx HTN - Increased home Losartan to 25mg PO daily - Increased Lopressor to 50mg PO BID ENDO: Hemoglobin A1C: 6.5 Accuchecks - ISS for now, metformin to start after cardiac cath Monitor GI: Heart Healthy, Consistent Carb Diet Nausea Prophylaxis - Zofran 4mg IV PRN Pulm: O2 sat: 100% on rm air CXR (12/30/16): NAD /Renal: NS @ 100ml/hr Hypokalemia - resolved, 4.0 on AM labs UA: 1+ blood, LE/nitrate negative - HCG negative UDS: negative Prophylaxis: SCDs Pepcid 20mg IV Q12 Lovenox 90mg SC Q12 <Azeem Mcguire - Last Filed: 12/31/16 17:53> CCU Objective - Vital Signs / Intake & Output Vital Signs (Last 4 hours): Vital Signs Temp Pulse Resp BP Pulse Ox 12/31/16 17:01 88 16 129/76 100 12/31/16 17:00 95 H 19 100 12/31/16 16:01 78 28 H 131/80 100 12/31/16 16:00 97.6 F 81 23 100 12/31/16 15:07 81 22 127/73 12/31/16 15:05 79 12/31/16 14:01 88 22 114/70 100 12/31/16 14:00 84 18 100 Intake and Output (Last 8hrs): Intake & Output 12/31/16 12/31/16 12/31/16 06:59 14:59 22:59 Intake Total 50 Output Total 350 200 50 Balance -350 -150 -50 Weight 194 lb 0.108 oz Intake: Oral 50 Output: Urine 350 200 50 Urine, Voided 350 200 50 Other: # Voids Urine, Voided 1 - Medications Active Medications: Active Medications Generic Name Dose Route Start Last Admin Trade Name Freq PRN Reason Stop Dose Admin Aspirin 81 mg 12/31/16 10:00 12/31/16 09:06 Ecotrin PO 81 mg DAILY GUY Administration Clopidogrel Bisulfate 75 mg 12/31/16 17:45 Plavix PO DAILY GUY Enoxaparin Sodium 90 mg 12/30/16 22:00 12/31/16 09:06 Lovenox SC 90 mg Q12 GUY Administration Famotidine 20 mg 12/30/16 11:15 12/31/16 09:06 Pepcid IVP 20 mg Q12 GUY Administration Insulin Human Regular 0 unit 12/31/16 16:30 12/31/16 17:03 Novolin R SC Not Given ACHS [facility] Protocol Losartan Potassium 25 mg 12/30/16 18:46 12/31/16 09:06 Cozaar PO 25 mg DAILY GUY Administration Metoprolol Tartrate 50 mg 12/30/16 18:45 12/31/16 09:06 Lopressor PO 50 mg BID GUY Administration Nitroglycerin 1 ea 12/30/16 12:20 Nitro-Bid 2% Oint TOP Q6H PRN pain Ondansetron HCl 4 mg 12/30/16 11:15 12/30/16 20:35 Zofran Inj IVP 4 mg Q6H PRN Administration Nausea/Vomiting - Patient Studies Lab Studies: Lab Studies 12/31/16 12/31/16 12/31/16 Range/Units 16:08 13:36 13:26 WBC (4.8-10.8) K/uL RBC (3.80-5.20) Mil/uL Hgb (11.0-16.0) g/dL Hct (34.0-47.0) % MCV (81.0-99.0) fL MCH (27.0-31.0) pg MCHC (33.0-37.0) g/dL RDW (11.5-14.5) % Plt Count (130-400) K/uL MPV (7.2-11.7) fL Neut % (Auto) (50.0-75.0) % Lymph % (Auto) (20.0-40.0) % Jones % (Auto) (0.0-10.0) % Eos % (Auto) (0.0-4.0) % Baso % (Auto) (0.0-2.0) % Neut # (1.8-7.0) K/uL Lymph # (1.0-4.3) K/uL Jones # (0.0-0.8) K/uL Eos # (0.0-0.7) K/uL Baso # (0.0-0.2) K/uL PT (9.7-12.2) SECONDS INR APTT (21-34) SECONDS Sodium (132-148) mmol/L Potassium (3.6-5.2) mmol/L Chloride (98-107) mmol/L Carbon Dioxide (22-30) mmol/L Anion Gap (10-20) BUN (7-17) mg/dL Creatinine (0.7-1.2) MG/DL Est GFR ( Amer) Est GFR (Non-Af Amer) POC Glucose (mg/dL) 113 H 109 (65-110) mg/dL Random Glucose (65-105) mg/dL Hemoglobin A1c (4.2-6.5) % Calcium (8.6-10.4) mg/dl Phosphorus (2.5-4.5) mg/dL Magnesium (1.6-2.3) mg/dL Total Bilirubin (0.2-1.3) mg/dL AST (14-36) U/L ALT (9-52) U/L Alkaline Phosphatase (38-126) U/L Total Creatine Kinase 1476 H (30-135) U/L CK-MB (Mass) 15.8 H (0.0-3.38) ng/mL Troponin I, Quant 18.4000 H* (0.00-0.120) ng/mL Total Protein (6.3-8.3) g/dL Albumin (3.5-5.0) g/dL Globulin (2.2-3.9) gm/dL Albumin/Globulin Ratio (1.0-2.1) Triglycerides (0-149) mg/dL Cholesterol (0-199) mg/dL LDL Cholesterol Direct (0-129) mg/dL HDL Cholesterol (30-70) mg/dL 12/31/16 12/31/16 12/31/16 Range/Units 06:30 06:30 06:30 WBC (4.8-10.8) K/uL RBC (3.80-5.20) Mil/uL Hgb (11.0-16.0) g/dL Hct (34.0-47.0) % MCV (81.0-99.0) fL MCH (27.0-31.0) pg MCHC (33.0-37.0) g/dL RDW (11.5-14.5) % Plt Count (130-400) K/uL MPV (7.2-11.7) fL Neut % (Auto) (50.0-75.0) % Lymph % (Auto) (20.0-40.0) % Jones % (Auto) (0.0-10.0) % Eos % (Auto) (0.0-4.0) % Baso % (Auto) (0.0-2.0) % Neut # (1.8-7.0) K/uL Lymph # (1.0-4.3) K/uL Jones # (0.0-0.8) K/uL Eos # (0.0-0.7) K/uL Baso # (0.0-0.2) K/uL PT (9.7-12.2) SECONDS INR APTT (21-34) SECONDS Sodium 138 (132-148) mmol/L Potassium 4.0 (3.6-5.2) mmol/L Chloride 100 (98-107) mmol/L Carbon Dioxide 26 (22-30) mmol/L Anion Gap 17 (10-20) BUN 10 (7-17) mg/dL Creatinine 0.7 (0.7-1.2) MG/DL Est GFR ( Amer) > 60 Est GFR (Non-Af Amer) > 60 POC Glucose (mg/dL) (65-110) mg/dL Random Glucose 126 H (65-105) mg/dL Hemoglobin A1c 6.5 (4.2-6.5) % Calcium 9.5 (8.6-10.4) mg/dl Phosphorus 3.8 (2.5-4.5) mg/dL Magnesium 2.2 (1.6-2.3) mg/dL Total Bilirubin 0.6 (0.2-1.3) mg/dL AST 244 H D (14-36) U/L ALT 28 (9-52) U/L Alkaline Phosphatase 75 (38-126) U/L Total Creatine Kinase (30-135) U/L CK-MB (Mass) (0.0-3.38) ng/mL Troponin I, Quant (0.00-0.120) ng/mL Total Protein 8.8 H (6.3-8.3) g/dL Albumin 4.8 (3.5-5.0) g/dL Globulin 4.1 H (2.2-3.9) gm/dL Albumin/Globulin Ratio 1.2 (1.0-2.1) Triglycerides 151 H (0-149) mg/dL Cholesterol 304 H (0-199) mg/dL LDL Cholesterol Direct 199 H (0-129) mg/dL HDL Cholesterol 49 (30-70) mg/dL 12/31/16 12/31/16 12/30/16 Range/Units 06:30 06:30 22:43 WBC 13.1 H (4.8-10.8) K/uL RBC 4.24 (3.80-5.20) Mil/uL Hgb 12.5 (11.0-16.0) g/dL Hct 38.5 (34.0-47.0) % MCV 90.7 (81.0-99.0) fL MCH 29.4 (27.0-31.0) pg MCHC 32.4 L (33.0-37.0) g/dL RDW 13.2 (11.5-14.5) % Plt Count 278 (130-400) K/uL MPV 10.0 (7.2-11.7) fL Neut % (Auto) 71.4 (50.0-75.0) % Lymph % (Auto) 21.6 (20.0-40.0) % Jones % (Auto) 6.4 (0.0-10.0) % Eos % (Auto) 0.3 (0.0-4.0) % Baso % (Auto) 0.3 (0.0-2.0) % Neut # 9.4 H (1.8-7.0) K/uL Lymph # 2.8 (1.0-4.3) K/uL Jones # 0.8 (0.0-0.8) K/uL Eos # 0.0 (0.0-0.7) K/uL Baso # 0.0 (0.0-0.2) K/uL PT 12.7 H (9.7-12.2) SECONDS INR 1.1 APTT 38 H (21-34) SECONDS Sodium 136 (132-148) mmol/L Potassium 3.8 (3.6-5.2) mmol/L Chloride 99 (98-107) mmol/L Carbon Dioxide 23 (22-30) mmol/L Anion Gap 18 (10-20) BUN 9 (7-17) mg/dL Creatinine 0.6 L (0.7-1.2) MG/DL Est GFR ( Amer) > 60 Est GFR (Non-Af Amer) > 60 POC Glucose (mg/dL) (65-110) mg/dL Random Glucose 139 H (65-105) mg/dL Hemoglobin A1c (4.2-6.5) % Calcium 9.9 (8.6-10.4) mg/dl Phosphorus 3.4 (2.5-4.5) mg/dL Magnesium 2.2 (1.6-2.3) mg/dL Total Bilirubin (0.2-1.3) mg/dL AST (14-36) U/L ALT (9-52) U/L Alkaline Phosphatase (38-126) U/L Total Creatine Kinase 2954 H (30-135) U/L CK-MB (Mass) 39.7 H (0.0-3.38) ng/mL Troponin I, Quant 22.0000 H* (0.00-0.120) ng/mL Total Protein (6.3-8.3) g/dL Albumin (3.5-5.0) g/dL Globulin (2.2-3.9) gm/dL Albumin/Globulin Ratio (1.0-2.1) Triglycerides (0-149) mg/dL Cholesterol (0-199) mg/dL LDL Cholesterol Direct (0-129) mg/dL HDL Cholesterol (30-70) mg/dL Laboratory Results - last 24 hr 12/30/16 12/31/16 12/31/16 22:43 06:30 06:30 WBC 13.1 H RBC 4.24 Hgb 12.5 Hct 38.5 MCV 90.7 MCH 29.4 MCHC 32.4 L RDW 13.2 Plt Count 278 MPV 10.0 Neut % (Auto) 71.4 Lymph % (Auto) 21.6 Jones % (Auto) 6.4 Eos % (Auto) 0.3 Baso % (Auto) 0.3 Neut # 9.4 H Lymph # 2.8 Jones # 0.8 Eos # 0.0 Baso # 0.0 PT 12.7 H INR 1.1 APTT 38 H Sodium 136 Potassium 3.8 Chloride 99 Carbon Dioxide 23 Anion Gap 18 BUN 9 Creatinine 0.6 L Est GFR ( Amer) > 60 Est GFR (Non-Af Amer) > 60 POC Glucose (mg/dL) Random Glucose 139 H Hemoglobin A1c Calcium 9.9 Phosphorus 3.4 Magnesium 2.2 Total Bilirubin AST ALT Alkaline Phosphatase Total Creatine Kinase 2954 H CK-MB (Mass) 39.7 H Troponin I, Quant 22.0000 H* Total Protein Albumin Globulin Albumin/Globulin Ratio Triglycerides Cholesterol LDL Cholesterol Direct HDL Cholesterol 12/31/16 12/31/16 12/31/16 06:30 06:30 06:30 WBC RBC Hgb Hct MCV MCH MCHC RDW Plt Count MPV Neut % (Auto) Lymph % (Auto) Jones % (Auto) Eos % (Auto) Baso % (Auto) Neut # Lymph # Jones # Eos # Baso # PT INR APTT Sodium 138 Potassium 4.0 Chloride 100 Carbon Dioxide 26 Anion Gap 17 BUN 10 Creatinine 0.7 Est GFR ( Amer) > 60 Est GFR (Non-Af Amer) > 60 POC Glucose (mg/dL) Random Glucose 126 H Hemoglobin A1c 6.5 Calcium 9.5 Phosphorus 3.8 Magnesium 2.2 Total Bilirubin 0.6 AST 244 H D ALT 28 Alkaline Phosphatase 75 Total Creatine Kinase CK-MB (Mass) Troponin I, Quant Total Protein 8.8 H Albumin 4.8 Globulin 4.1 H Albumin/Globulin Ratio 1.2 Triglycerides 151 H Cholesterol 304 H LDL Cholesterol Direct 199 H HDL Cholesterol 49 12/31/16 12/31/16 12/31/16 13:26 13:36 16:08 WBC RBC Hgb Hct MCV MCH MCHC RDW Plt Count MPV Neut % (Auto) Lymph % (Auto) Jones % (Auto) Eos % (Auto) Baso % (Auto) Neut # Lymph # Jones # Eos # Baso # PT INR APTT Sodium Potassium Chloride Carbon Dioxide Anion Gap BUN Creatinine Est GFR ( Amer) Est GFR (Non-Af Amer) POC Glucose (mg/dL) 109 113 H Random Glucose Hemoglobin A1c Calcium Phosphorus Magnesium Total Bilirubin AST ALT Alkaline Phosphatase Total Creatine Kinase 1476 H CK-MB (Mass) 15.8 H Troponin I, Quant 18.4000 H* Total Protein Albumin Globulin Albumin/Globulin Ratio Triglycerides Cholesterol LDL Cholesterol Direct HDL Cholesterol EKG/Cardiology Studies: Cardiology / EKG Studies 12/30/16 17:46 EKG [ELECTROCARDIOGRAM] Timed Comment: Mode Of Transportation: Reason For Exam: chest pain, rule out acs 12/31/16 07:00 EKG [ELECTROCARDIOGRAM] Routine Comment: Mode Of Transportation: PORTABLE Reason For Exam: DX: chest pain Critical Care Progress Note - Nutrition Nutrition: Nutrition Category Date Time Status Heart Healthy Diet [DIET] Diets 12/31/16 Lunch Active Attending/Attestation - Attestation I have personally seen and examined this patient.: Yes I have fully participated in the care of the patient.: Yes I have reviewed all pertinent clinical information: Yes Notes (Text): 12/31/16 17:52 Patient seen and examined in the intensive care unit. Case discussed with staff in the morning. CT angiogram negative for pulmonary embolism and patient is scheduled for cardiac cath tomorrow Continue present treatment
--- NOTE | 2016-12-31 12:21 | CP.PCM.PN ---
Subjective - Date & Time of Evaluation Date of Evaluation: 12/31/16 Time of Evaluation: 14:00 - Subjective Subjective: Patient was seen and examined in ICU. Denies any chest pain today. Objective - Vital Signs/Intake and Output Vital Signs (last 24 hours): Temp Pulse Resp BP Pulse Ox 98.1 F 75 12 129/91 H 100 12/31/16 08:00 12/31/16 12:01 12/31/16 12:01 12/31/16 12:01 12/31/16 12:01 Intake and Output: 12/31/16 12/31/16 06:59 18:59 Intake Total 600 50 Output Total 700 200 Balance -100 -150 - Medications Medications: Current Medications Aspirin (Ecotrin) 81 mg PO DAILY [facility] Last Admin: 12/31/16 09:06 Dose: 81 mg Enoxaparin Sodium (Lovenox) 90 mg SC Q12 [facility] Last Admin: 12/31/16 09:06 Dose: 90 mg Famotidine (Pepcid) 20 mg IVP Q12 [facility] Last Admin: 12/31/16 09:06 Dose: 20 mg Insulin Human Regular (Novolin R) 0 unit SC ACHS [facility] PRN Reason: Protocol Losartan Potassium (Cozaar) 25 mg PO DAILY [facility] Last Admin: 12/31/16 09:06 Dose: 25 mg Metoprolol Tartrate (Lopressor) 50 mg PO BID [facility] Last Admin: 12/31/16 09:06 Dose: 50 mg Nitroglycerin (Nitro-Bid 2% Oint) 1 ea TOP Q6H PRN PRN Reason: pain Ondansetron HCl (Zofran Inj) 4 mg IVP Q6H PRN PRN Reason: Nausea/Vomiting Last Admin: 12/30/16 20:35 Dose: 4 mg - Labs Labs: 12/31/16 06:30 12/31/16 06:30 PT 12.7 SECONDS (9.7-12.2) H 12/31/16 06:30 INR 1.1 12/31/16 06:30 APTT 38 SECONDS (21-34) H 12/31/16 06:30 - Head Exam Head Exam: ATRAUMATIC, NORMOCEPHALIC - Eye Exam Eye Exam: Normal appearance, PERRL - ENT Exam ENT Exam: Mucous Membranes Moist - Respiratory Exam Respiratory Exam: absent: Chest Wall Tenderness - Cardiovascular Exam Cardiovascular Exam: REGULAR RHYTHM, +S1, +S2 - GI/Abdominal Exam GI & Abdominal Exam: Soft. absent: Tenderness - Extremities Exam Extremities Exam: Full ROM. absent: Pedal Edema - Neurological Exam Neurological Exam: Alert, Awake, Oriented x3 Assessment and Plan (1) Acute coronary syndrome Assessment & Plan: Continue current management for acute, syndrome X and cardiology on board In view of for elevated pulmonary pressure in the echocardiogram we will obtain a CT angiogram as per recommendations of cardiology Status: Acute (2) Hypertension Assessment & Plan: Continue current management. Patient is on Cozaar and Lopressor. Blood pressures controlled. Status: Acute - Assessment and Plan (Free Text) Plan: Discussed with patient and her family at bedside with the patient's permission Discussed with ICU resident.
[2016-12-31] MEDS ORDERED: Iodixanol 320 MG/ML 100 ML BOTTLE IV ONE ×2 (14:43→14:52)
--- NOTE | 2016-12-31 15:56 | CT ---
PROCEDURE: CT Chest with contrast (Pulmonary Angiogram) HISTORY: Evaluate for PE; severe pulm HTN on ECHO COMPARISON: None available. TECHNIQUE: Axial computed tomography images were obtained of the chest in the pulmonary arterial phase of enhancement. Coronal and sagittal reformatted images were created and reviewed. Intravenous contrast dose: 100 mL Visipaque Radiation dose: Total exam DLP = 522.12 mGy-cm. This CT exam was performed using one or more of the following dose reduction techniques: Automated exposure control, adjustment of the mA and/or kV according to patient size, and/or use of iterative reconstruction technique. FINDINGS: PULMONARY ARTERIES: Study is of suboptimal diagnostic quality for evaluation of pulmonary embolism due to missed bolus. Allowing for this, no large central pulmonary embolism. The pulmonary trunk measures larger than the ascending aorta compatible with pulmonary hypertension. AORTA: The aorta is normal in caliber. No thoracic aortic aneurysm. LUNGS: The lungs are well inflated and clear. No nodule, mass or pulmonary consolidation. PLEURAL SPACES: No effusion orpneumothorax. HEART: The heart is normal in size. No pericardial effusion. LYMPH NODES: No pathologic mediastinal or hilar lymphadenopathy. BONES, CHEST WALL: No fracture or destructive lesion. Multilevel degenerative changes in the lower thoracic spine. OTHER FINDINGS: Unremarkable. IMPRESSION: 1. Examination is of suboptimal diagnostic quality for evaluation of pulmonary embolism due to missed bolus. Allowing for this, no large central pulmonary embolism. 2. Clear lungs. 3. The pulmonary trunk is larger than the ascending aorta are compatible with pulmonary hypertension.
[2016-12-31] MEDS: (Novolin R) Insulin Human Regular 100 units/ml vial SC SCH ×2 (17:03→22:31)
--- NOTE | 2016-12-31 23:36 | CP.PCM.PN ---
Subjective - Date & Time of Evaluation Date of Evaluation: 12/31/16 Time of Evaluation: 10:00 - Subjective Subjective: Scheduled cardiac cath deferred due to lab logistics Rescheduled for tomorrow at 1 PM Objective - Vital Signs/Intake and Output Vital Signs (last 24 hours): Temp Pulse Resp BP Pulse Ox 97.2 F L 62 22 98/52 L 100 12/31/16 20:00 12/31/16 23:01 12/31/16 23:01 12/31/16 23:01 12/31/16 23:01 Intake and Output: 12/31/16 01/01/17 18:59 06:59 Intake Total 50 100 Output Total 250 200 Balance -200 -100 - Medications Medications: Current Medications Aspirin (Ecotrin) 81 mg PO DAILY [facility] Last Admin: 12/31/16 09:06 Dose: 81 mg Clopidogrel Bisulfate (Plavix) 75 mg PO DAILY [facility] Last Admin: 12/31/16 18:00 Dose: 75 mg Enoxaparin Sodium (Lovenox) 90 mg SC Q12 [facility] Last Admin: 12/31/16 22:30 Dose: 90 mg Famotidine (Pepcid) 20 mg IVP Q12 [facility] Last Admin: 12/31/16 22:31 Dose: 20 mg Insulin Human Regular (Novolin R) 0 unit SC [facility] PRN Reason: Protocol Last Admin: 12/31/16 22:31 Dose: Not Given Losartan Potassium (Cozaar) 25 mg PO DAILY [facility] Last Admin: 12/31/16 09:06 Dose: 25 mg Metoprolol Tartrate (Lopressor) 50 mg PO BID [facility] Last Admin: 12/31/16 18:00 Dose: 50 mg Nitroglycerin (Nitro-Bid 2% Oint) 1 ea TOP Q6H PRN PRN Reason: pain Ondansetron HCl (Zofran Inj) 4 mg IVP Q6H PRN PRN Reason: Nausea/Vomiting Last Admin: 12/30/16 20:35 Dose: 4 mg - Labs Labs: 12/31/16 06:30 12/31/16 06:30 PT 12.7 SECONDS (9.7-12.2) H 12/31/16 06:30 INR 1.1 12/31/16 06:30 APTT 38 SECONDS (21-34) H 04/25/17 06:30 - Head Exam Head Exam: NORMAL INSPECTION - Eye Exam Eye Exam: EOMI - ENT Exam ENT Exam: Mucous Membranes Moist - Neck Exam Neck Exam: Normal Inspection - Respiratory Exam Respiratory Exam: Clear to Ausculation Bilateral - Cardiovascular Exam Cardiovascular Exam: REGULAR RHYTHM - GI/Abdominal Exam GI & Abdominal Exam: Soft, Normal Bowel Sounds - Extremities Exam Extremities Exam: Normal Inspection - Neurological Exam Neurological Exam: Alert, Oriented x3 Assessment and Plan - Assessment and Plan (Free Text) Assessment: Ms. thibodeaux as alluded earlier presented with a chest pain syndrome, subtle EKG changes elevated serum troponin normal LV systolic function and pulmonary hypertension and a dilated coronary sinus on the echocardiogram Scheduled cath could not be performed due to cath lab radiological technologist logistics discussed with patient and at length procedures risks including but not limited to Myocardial infarction stroke renal failure bleeding dysrhythmias nerve damage; they verbalized understanding and assent NPO post midnight
[2017-01-01 06:26] LABS: BASO # 0.1 K/uL (0.0-0.2); BASO % 0.5 % (0.0-2.0); EOS % 0.2 % (0.0-4.0); HEMATOCRIT 38.7 % (34.0-47.0); LYMPH # 3.4 K/uL (1.0-4.3); LYMPH % 25.1 % (20.0-40.0); MEAN CELL VOLUME 91.4 fL (81.0-99.0); MEAN CORPUSCULAR HEMOGLOBIN 29.2 pg (27.0-31.0); MEAN PLATELET VOLUME 9.8 fL (7.2-11.7); MONO % 7.7 % (0.0-10.0); RED CELL DISTRIBUTION WIDTH 12.6 % (11.5-14.5); WHITE BLOOD COUNT 13.5 K/uL (4.8-10.8)
[2017-01-01 06:40] LABS: CHLORIDE 101 mmol/L (98-107); POTASSIUM 3.9 mmol/L (3.6-5.2); SODIUM 138 mmol/L (132-148)
[2017-01-01 06:42] LABS: AST/SGOT 124 U/L (14-36); BILIRUBIN,TOTAL 0.6 mg/dL (0.2-1.3); CARBON DIOXIDE 23 mmol/L (22-30); GFR AFRICAN-AMERICAN > 60
[2017-01-01 06:43] LABS: ALB/GLOB RATIO 1.1 (1.0-2.1); ALKALINE PHOSPHATASE 72 U/L (38-126); ALT/SGPT 25 U/L (9-52); BLOOD UREA NITROGEN 16 mg/dL (7-17); CALCIUM 9.4 mg/dl (8.6-10.4); GLUCOSE,RANDOM 117 mg/dL (65-105); PHOSPHOROUS 4.1 mg/dL (2.5-4.5); TOTAL PROTEIN 8.4 g/dL (6.3-8.3)
[2017-01-01 06:44] LABS: MAGNESIUM 2.4 mg/dL (1.6-2.3)
[2017-01-01] MEDS: (Novolin R) Insulin Human Regular 100 units/ml vial SC SCH ×4 (08:49→23:54)
--- NOTE | 2017-01-01 11:13 | CP.CCUPN ---
<Jese Claire - Last Filed: 01/01/17 16:36> CCU Subjective - Physician Review Subjective (Free Text): 01/01/17 10:57 Pt seen and examined at bedside. Pt was allowed breakfast, but is now NPO, for confirmed for cardiac cath at 1pm. She denies chest pain, palpitations, SOB, or abdominal pain this AM. Critical Care Time Spent (in minutes): 40 CCU Objective - Vital Signs / Intake & Output Vital Signs (Last 4 hours): Vital Signs Temp Pulse Resp BP Pulse Ox 01/01/17 10:13 79 16 113/54 L 100 01/01/17 10:02 82 12 114/58 L 100 01/01/17 10:00 83 16 100 01/01/17 09:01 72 17 97/55 L 100 01/01/17 09:00 72 20 100 01/01/17 08:01 74 21 90/60 L 98 01/01/17 08:00 98.1 F 82 17 99 01/01/17 07:01 73 22 97/53 L 98 01/01/17 07:00 77 10 L 99 Intake and Output (Last 8hrs): Intake & Output 12/31/16 01/01/17 01/01/17 22:59 06:59 14:59 Intake Total 100 240 240 Output Total 250 0 600 Balance -150 240 -360 Weight 194 lb 0.108 oz Intake: Oral 100 240 240 Output: Urine 250 0 600 Urine, Voided 250 0 600 - Physical Exam Head: Positive for: Atraumatic, Normocephalic Pupils: Positive for: PERRL Extroacular Muscles: Positive for: EOMI Conjunctiva: Positive for: Normal Mouth: Positive for: Moist Mucous Membranes Neck: Positive for: Normal Range of Motion. Negative for: JVD Respiratory/Chest: Positive for: Clear to Auscultation. Negative for: Respiratory Distress, Accessory Muscle Use, Rales, Retracting, Rhonchi Cardiovascular: Positive for: Regular Rate and Rhythm, Normal S1, S2. Negative for: Murmurs Abdomen: Positive for: Normal Bowel Sounds. Negative for: Tenderness, Distention Upper Extremity: Positive for: Normal Inspection. Negative for: Edema Lower Extremity: Positive for: Normal Inspection, Other (no wounds, vericose veins noted). Negative for: Edema Neurological: Positive for: GCS=15, CN II-XII Intact, Speech Normal Skin: Positive for: Warm, Dry Psychiatric: Positive for: Alert, Oriented x 3 - Medications Active Medications: Active Medications Generic Name Dose Route Start Last Admin Trade Name Freq PRN Reason Stop Dose Admin Aspirin 81 mg 12/31/16 10:00 01/01/17 10:11 Ecotrin PO 81 mg DAILY GUY Administration Clopidogrel Bisulfate 75 mg 12/31/16 17:45 01/01/17 10:11 Plavix PO 75 mg DAILY GUY Administration Enoxaparin Sodium 90 mg 12/30/16 22:00 12/31/16 22:30 Lovenox SC 90 mg Q12 GUY Administration Famotidine 20 mg 12/30/16 11:15 01/01/17 10:11 Pepcid IVP 20 mg Q12 GUY Administration Insulin Human Regular 0 unit 12/31/16 16:30 01/01/17 08:49 Novolin R SC Not Given ACHS [facility] Protocol Losartan Potassium 25 mg 12/30/16 18:46 01/01/17 10:18 Cozaar PO 25 mg DAILY GUY Administration Metoprolol Tartrate 50 mg 12/30/16 18:45 01/01/17 10:17 Lopressor PO 50 mg BID GUY Administration Nitroglycerin 1 ea 12/30/16 12:20 Nitro-Bid 2% Oint TOP Q6H PRN pain Ondansetron HCl 4 mg 12/30/16 11:15 12/30/16 20:35 Zofran Inj IVP 4 mg Q6H PRN Administration Nausea/Vomiting - Patient Studies Lab Studies: Microbiology Studies 12/30/16 19:32 MRSA Culture (Admit) - Final Naris MRSA NOT DETECTED Lab Studies 01/01/17 01/01/17 01/01/17 Range/Units 07:32 06:18 06:18 WBC 13.5 H (4.8-10.8) K/uL RBC 4.23 (3.80-5.20) Mil/uL Hgb 12.4 (11.0-16.0) g/dL Hct 38.7 (34.0-47.0) % MCV 91.4 (81.0-99.0) fL MCH 29.2 (27.0-31.0) pg MCHC 32.0 L (33.0-37.0) g/dL RDW 12.6 (11.5-14.5) % Plt Count 265 (130-400) K/uL MPV 9.8 (7.2-11.7) fL Neut % (Auto) 66.5 (50.0-75.0) % Lymph % (Auto) 25.1 (20.0-40.0) % Buchanan % (Auto) 7.7 (0.0-10.0) % Eos % (Auto) 0.2 (0.0-4.0) % Baso % (Auto) 0.5 (0.0-2.0) % Neut # 9.0 H (1.8-7.0) K/uL Lymph # 3.4 (1.0-4.3) K/uL Buchanan # 1.0 H (0.0-0.8) K/uL Eos # 0.0 (0.0-0.7) K/uL Baso # 0.1 (0.0-0.2) K/uL Sodium 138 (132-148) mmol/L Potassium 3.9 (3.6-5.2) mmol/L Chloride 101 (98-107) mmol/L Carbon Dioxide 23 (22-30) mmol/L Anion Gap 19 (10-20) BUN 16 (7-17) mg/dL Creatinine 0.7 (0.7-1.2) MG/DL Est GFR ( Amer) > 60 Est GFR (Non-Af Amer) > 60 POC Glucose (mg/dL) 142 H (65-110) mg/dL Random Glucose 117 H (65-105) mg/dL Calcium 9.4 (8.6-10.4) mg/dl Phosphorus 4.1 (2.5-4.5) mg/dL Magnesium 2.4 H (1.6-2.3) mg/dL Total Bilirubin 0.6 (0.2-1.3) mg/dL AST 124 H D (14-36) U/L ALT 25 (9-52) U/L Alkaline Phosphatase 72 (38-126) U/L Total Creatine Kinase (30-135) U/L CK-MB (Mass) (0.0-3.38) ng/mL Troponin I, Quant (0.00-0.120) ng/mL Total Protein 8.4 H (6.3-8.3) g/dL Albumin 4.5 (3.5-5.0) g/dL Globulin 3.9 (2.2-3.9) gm/dL Albumin/Globulin Ratio 1.1 (1.0-2.1) 12/31/16 12/31/16 12/31/16 Range/Units 21:21 16:08 13:36 WBC (4.8-10.8) K/uL RBC (3.80-5.20) Mil/uL Hgb (11.0-16.0) g/dL Hct (34.0-47.0) % MCV (81.0-99.0) fL MCH (27.0-31.0) pg MCHC (33.0-37.0) g/dL RDW (11.5-14.5) % Plt Count (130-400) K/uL MPV (7.2-11.7) fL Neut % (Auto) (50.0-75.0) % Lymph % (Auto) (20.0-40.0) % Buchanan % (Auto) (0.0-10.0) % Eos % (Auto) (0.0-4.0) % Baso % (Auto) (0.0-2.0) % Neut # (1.8-7.0) K/uL Lymph # (1.0-4.3) K/uL Buchanan # (0.0-0.8) K/uL Eos # (0.0-0.7) K/uL Baso # (0.0-0.2) K/uL Sodium (132-148) mmol/L Potassium (3.6-5.2) mmol/L Chloride (98-107) mmol/L Carbon Dioxide (22-30) mmol/L Anion Gap (10-20) BUN (7-17) mg/dL Creatinine (0.7-1.2) MG/DL Est GFR ( Amer) Est GFR (Non-Af Amer) POC Glucose (mg/dL) 134 H 113 H (65-110) mg/dL Random Glucose (65-105) mg/dL Calcium (8.6-10.4) mg/dl Phosphorus (2.5-4.5) mg/dL Magnesium (1.6-2.3) mg/dL Total Bilirubin (0.2-1.3) mg/dL AST (14-36) U/L ALT (9-52) U/L Alkaline Phosphatase (38-126) U/L Total Creatine Kinase 1476 H (30-135) U/L CK-MB (Mass) 15.8 H (0.0-3.38) ng/mL Troponin I, Quant 18.4000 H* (0.00-0.120) ng/mL Total Protein (6.3-8.3) g/dL Albumin (3.5-5.0) g/dL Globulin (2.2-3.9) gm/dL Albumin/Globulin Ratio (1.0-2.1) 12/31/ Range/Units 13:26 WBC (4.8-10.8) K/uL RBC (3.80-5.20) Mil/uL Hgb (11.0-16.0) g/dL Hct (34.0-47.0) % MCV (81.0-99.0) fL MCH (27.0-31.0) pg MCHC (33.0-37.0) g/dL RDW (11.5-14.5) % Plt Count (130-400) K/uL MPV (7.2-11.7) fL Neut % (Auto) (50.0-75.0) % Lymph % (Auto) (20.0-40.0) % Buchanan % (Auto) (0.0-10.0) % Eos % (Auto) (0.0-4.0) % Baso % (Auto) (0.0-2.0) % Neut # (1.8-7.0) K/uL Lymph # (1.0-4.3) K/uL Buchanan # (0.0-0.8) K/uL Eos # (0.0-0.7) K/uL Baso # (0.0-0.2) K/uL Sodium (132-148) mmol/L Potassium (3.6-5.2) mmol/L Chloride (98-107) mmol/L Carbon Dioxide (22-30) mmol/L Anion Gap (10-20) BUN (7-17) mg/dL Creatinine (0.7-1.2) MG/DL Est GFR ( Amer) Est GFR (Non-Af Amer) POC Glucose (mg/dL) 109 (65-110) mg/dL Random Glucose (65-105) mg/dL Calcium (8.6-10.4) mg/dl Phosphorus (2.5-4.5) mg/dL Magnesium (1.6-2.3) mg/dL Total Bilirubin (0.2-1.3) mg/dL AST (14-36) U/L ALT (9-52) U/L Alkaline Phosphatase (38-126) U/L Total Creatine Kinase (30-135) U/L CK-MB (Mass) (0.0-3.38) ng/mL Troponin I, Quant (0.00-0.120) ng/mL Total Protein (6.3-8.3) g/dL Albumin (3.5-5.0) g/dL Globulin (2.2-3.9) gm/dL Albumin/Globulin Ratio (1.0-2.1) Laboratory Results - last 24 hr 12/31/16 12/31/16 12/31/16 13:26 13:36 16:08 WBC RBC Hgb Hct MCV MCH MCHC RDW Plt Count MPV Neut % (Auto) Lymph % (Auto) Buchanan % (Auto) Eos % (Auto) Baso % (Auto) Neut # Lymph # Buchanan # Eos # Baso # Sodium Potassium Chloride Carbon Dioxide Anion Gap BUN Creatinine Est GFR ( Amer) Est GFR (Non-Af Amer) POC Glucose (mg/dL) 109 113 H Random Glucose Calcium Phosphorus Magnesium Total Bilirubin AST ALT Alkaline Phosphatase Total Creatine Kinase 1476 H CK-MB (Mass) 15.8 H Troponin I, Quant 18.4000 H* Total Protein Albumin Globulin Albumin/Globulin Ratio 12/31/16 01/01/17 01/01/17 21:21 06:18 06:18 WBC 13.5 H RBC 4.23 Hgb 12.4 Hct 38.7 MCV 91.4 MCH 29.2 MCHC 32.0 L RDW 12.6 Plt Count 265 MPV 9.8 Neut % (Auto) 66.5 Lymph % (Auto) 25.1 Buchanan % (Auto) 7.7 Eos % (Auto) 0.2 Baso % (Auto) 0.5 Neut # 9.0 H Lymph # 3.4 Buchanan # 1.0 H Eos # 0.0 Baso # 0.1 Sodium 138 Potassium 3.9 Chloride 101 Carbon Dioxide 23 Anion Gap 19 BUN 16 Creatinine 0.7 Est GFR ( Amer) > 60 Est GFR (Non-Af Amer) > 60 POC Glucose (mg/dL) 134 H Random Glucose 117 H Calcium 9.4 Phosphorus 4.1 Magnesium 2.4 H Total Bilirubin 0.6 AST 124 H D ALT 25 Alkaline Phosphatase 72 Total Creatine Kinase CK-MB (Mass) Troponin I, Quant Total Protein 8.4 H Albumin 4.5 Globulin 3.9 Albumin/Globulin Ratio 1.1 01/01/17 07:32 WBC RBC Hgb Hct MCV MCH MCHC RDW Plt Count MPV Neut % (Auto) Lymph % (Auto) Buchanan % (Auto) Eos % (Auto) Baso % (Auto) Neut # Lymph # Buchanan # Eos # Baso # Sodium Potassium Chloride Carbon Dioxide Anion Gap BUN Creatinine Est GFR ( Amer) Est GFR (Non-Af Amer) POC Glucose (mg/dL) 142 H Random Glucose Calcium Phosphorus Magnesium Total Bilirubin AST ALT Alkaline Phosphatase Total Creatine Kinase CK-MB (Mass) Troponin I, Quant Total Protein Albumin Globulin Albumin/Globulin Ratio Fingerstick Blood Sugar Results: 134 Review of Systems - Constitutional Constitutional: absent: Fever, Chills - EENT Eyes: absent: Change in Vision Ears: absent: Decreased Hearing - Cardiovascular Cardiovascular: absent: Chest Pain, Chest Pain at Rest, Dyspnea, Dyspnea on Exertion - Respiratory Respiratory: absent: Cough, Dyspnea - Gastrointestinal Gastrointestinal: absent: Abdominal Pain, Nausea, Vomiting - Genitourinary Genitourinary: absent: Dysuria - Musculoskeletal Musculoskeletal: absent: Back Pain, Numbness, Tingling - Integumentary Integumentary: absent: Wounds Additional comments: vericose veins noted - Neurological Neurological: absent: Tingling, Weakness - Psychiatric Psychiatric: absent: Anxiety, Depression - Endocrine Endocrine: absent: Palpitations Critical Care Progress Note - Nutrition Nutrition: Nutrition Category Date Time Status Liquid Diet [DIET] Diets 01/01/17 Breakfast Active Assessment/Plan - Assessment and Plan (Free Text) Assessment: 46F with PMHx of HTN, Hyperlipidemia, with new diagnosis of diabetes, who presents to ED for chest pain. Tropininemia. NSTEMI. Started on ASA/Plavix/ Lovenox. ECHO with severe pulmonary HTN. Elevated A1c. For cardiac cath today with Dr. Fletcher Plan: Pt STATUS: Full code, Admitted to ICU Neuro: AAOx3 CV: ACS Elevated troponin (0.074 > 5.01 > 15.30 > 22.00>18) EKG (12/30/16): NSR. Possible Lt atrial enlargement. Incomplete RBBB. LVH with repolarization abnormality. Nitroglycerin and ASA 325mg PO in field Continue Crestor 20mg PO Daily, ASA 81mg PO Daily, Lopressor 25mg PO BID ECHO (12/30/16): LV normal size, wall thickness, and function. EF WNL (58%). Normal LV segmental wall motion. Moderate to severe tricuspid regurgitation. Moderate to severe pulmonary HTN. (see full report) D-dimer: negative BNP: 104 Lipid panel: Triglycerides 151, Cholesterol 304, LDL 199, HDL 49 Nitroglycerin 2% Q6H PRN Cardiology Consult: Dr. Johnson, help appreciated - CT Angio PE protocol (12/31/16): negative for PE - Additional ANTONIO panel showed downtrending troponin - Cardiac Cath today Hx HTN Normotensive or hypotensive in unit - Increased home Losartan to 25mg PO daily - Increased Lopressor to 50mg PO BID ENDO: Hemoglobin A1C: 6.5 Accuchecks - ISS for now, metformin to start after cardiac cath Monitor GI: Heart Healthy, Consistent Carb Diet Nausea Prophylaxis - Zofran 4mg IV PRN Pulm: O2 sat: 100% on rm air CXR (12/30/16): NAD /Renal: NS @ 100ml/hr Hypokalemia - resolved, 3.9 on AM labs UA: 1+ blood, LE/nitrate negative - HCG negative UDS: negative Prophylaxis: SCDs Pepcid 20mg IV Q12 Lovenox 90mg SC Q12 (HOLD for Cardiac Cath) <Azeem Mcguire - Last Filed: 01/01/17 17:50> CCU Objective - Vital Signs / Intake & Output Vital Signs (Last 4 hours): Vital Signs Pulse Resp BP Pulse Ox 01/01/17 17:22 69 16 113/75 99 01/01/17 17:07 76 21 128/71 100 01/01/17 17:01 122/68 01/01/17 17:00 69 15 100 01/01/17 16:01 76 18 131/77 100 01/01/17 16:00 75 23 100 01/01/17 15:59 74 15 121/76 01/01/17 15:58 80 01/01/17 14:01 67 22 107/59 L 100 01/01/17 14:00 66 25 H 100 Intake and Output (Last 8hrs): Intake & Output 01/01/17 01/01/17 01/01/17 06:59 14:59 22:59 Intake Total 240 360 Output Total 0 600 Balance 240 -240 Weight 194 lb 0.108 oz Intake: Oral 240 360 Output: Urine 0 600 Urine, Voided 0 600 - Medications Active Medications: Active Medications Generic Name Dose Route Start Last Admin Trade Name Freq PRN Reason Stop Dose Admin Aspirin 81 mg 12/31/16 10:00 01/01/17 10:11 Ecotrin PO 81 mg DAILY GUY Administration Clopidogrel Bisulfate 75 mg 12/31/16 17:45 01/01/17 10:11 Plavix PO 75 mg DAILY GUY Administration Enoxaparin Sodium 90 mg 12/30/16 22:00 01/01/17 11:36 Lovenox SC Not Given Q12 GUY Famotidine 20 mg 12/30/16 11:15 01/01/17 10:11 Pepcid IVP 20 mg Q12 GUY Administration Insulin Human Regular 0 unit 12/31/16 16:30 01/01/17 17:26 Novolin R SC Not Given ACHS FOR[facility] Protocol Losartan Potassium 25 mg 12/30/16 18:46 01/01/17 10:18 Cozaar PO 25 mg DAILY GUY Administration Metoprolol Tartrate 50 mg 12/30/16 18:45 01/01/17 17:31 Lopressor PO 50 mg BID GUY Administration Nitroglycerin 1 ea 12/30/16 12:20 Nitro-Bid 2% Oint TOP Q6H PRN pain Ondansetron HCl 4 mg 12/30/16 11:15 12/30/16 20:35 Zofran Inj IVP 4 mg Q6H PRN Administration Nausea/Vomiting - Patient Studies Lab Studies: Microbiology Studies 12/30/16 19:32 MRSA Culture (Admit) - Final Naris MRSA NOT DETECTED Lab Studies 04/26/17 04/26/17 04/26/17 Range/Units 16:56 15:45 15:45 WBC (4.8-10.8) K/uL RBC (3.80-5.20) Mil/uL Hgb (11.0-16.0) g/dL Hct (34.0-47.0) % MCV (81.0-99.0) fL MCH (27.0-31.0) pg MCHC (33.0-37.0) g/dL RDW (11.5-14.5) % Plt Count (130-400) K/uL MPV (7.2-11.7) fL Neut % (Auto) (50.0-75.0) % Lymph % (Auto) (20.0-40.0) % Buchanan % (Auto) (0.0-10.0) % Eos % (Auto) (0.0-4.0) % Baso % (Auto) (0.0-2.0) % Neut # (1.8-7.0) K/uL Lymph # (1.0-4.3) K/uL Buchanan # (0.0-0.8) K/uL Eos # (0.0-0.7) K/uL Baso # (0.0-0.2) K/uL Puncture Site Na Na pCO2 36 (35-45) mm/Hg pO2 48 137 H (30-55) mm/Hg HCO3 25.4 (21-28) mmol/L ABG pH 7.44 (7.35-7.45) ABG Total CO2 25.6 (22-28) mmol/L ABG O2 Saturation 98.6 H (95-98) % ABG Base Excess 0.7 (-2.0-3.0) mmol/L ABG Hemoglobin 15.1 (11.7-17.4) g/dL ABG Carboxyhemoglobin 1.2 (0.5-1.5) % POC ABG HHb (Measured) 1.4 (0.0-5.0) % ABG Methemoglobin 1.3 (0.0-3.0) % Miah Test Na Na VBG pH 7.36 (7.32-7.43) VBG pCO2 39 L (40-60) mmHg VBG HCO3 22.1 mmol/L VBG O2 Sat (Calc) 82.9 H (40-65) % VBG Base Excess -3.1 L (0.0-2.0) mmol/L Hgb O2 Saturation 96.1 (95.0-98.0) % Sodium (132-148) mmol/L Potassium (3.6-5.2) mmol/L Chloride (98-107) mmol/L Carbon Dioxide (22-30) mmol/L Anion Gap (10-20) BUN (7-17) mg/dL Creatinine (0.7-1.2) MG/DL Est GFR ( Amer) Est GFR (Non-Af Amer) POC Glucose (mg/dL) 108 (65-110) mg/dL Random Glucose (65-105) mg/dL Calcium (8.6-10.4) mg/dl Phosphorus (2.5-4.5) mg/dL Magnesium (1.6-2.3) mg/dL Total Bilirubin (0.2-1.3) mg/dL AST (14-36) U/L ALT (9-52) U/L Alkaline Phosphatase (38-126) U/L Total Protein (6.3-8.3) g/dL Albumin (3.5-5.0) g/dL Globulin (2.2-3.9) gm/dL Albumin/Globulin Ratio (1.0-2.1) 01/01/17 01/01/17 01/01/17 Range/Units 15:45 11:53 07:32 WBC (4.8-10.8) K/uL RBC (3.80-5.20) Mil/uL Hgb (11.0-16.0) g/dL Hct (34.0-47.0) % MCV (81.0-99.0) fL MCH (27.0-31.0) pg MCHC (33.0-37.0) g/dL RDW (11.5-14.5) % Plt Count (130-400) K/uL MPV (7.2-11.7) fL Neut % (Auto) (50.0-75.0) % Lymph % (Auto) (20.0-40.0) % Buchanan % (Auto) (0.0-10.0) % Eos % (Auto) (0.0-4.0) % Baso % (Auto) (0.0-2.0) % Neut # (1.8-7.0) K/uL Lymph # (1.0-4.3) K/uL Buchanan # (0.0-0.8) K/uL Eos # (0.0-0.7) K/uL Baso # (0.0-0.2) K/uL Puncture Site Na pCO2 (35-45) mm/Hg pO2 43 (30-55) mm/Hg HCO3 (21-28) mmol/L ABG pH (7.35-7.45) ABG Total CO2 (22-28) mmol/L ABG O2 Saturation (95-98) % ABG Base Excess (-2.0-3.0) mmol/L ABG Hemoglobin (11.7-17.4) g/dL ABG Carboxyhemoglobin (0.5-1.5) % POC ABG HHb (Measured) (0.0-5.0) % ABG Methemoglobin (0.0-3.0) % Miah Test Na VBG pH 7.42 (7.32-7.43) VBG pCO2 40 (40-60) mmHg VBG HCO3 25.5 mmol/L VBG O2 Sat (Calc) 74.9 H (40-65) % VBG Base Excess 1.3 (0.0-2.0) mmol/L Hgb O2 Saturation (95.0-98.0) % Sodium (132-148) mmol/L Potassium (3.6-5.2) mmol/L Chloride (98-107) mmol/L Carbon Dioxide (22-30) mmol/L Anion Gap (10-20) BUN (7-17) mg/dL Creatinine (0.7-1.2) MG/DL Est GFR ( Amer) Est GFR (Non-Af Amer) POC Glucose (mg/dL) 116 H 142 H (65-110) mg/dL Random Glucose (65-105) mg/dL Calcium (8.6-10.4) mg/dl Phosphorus (2.5-4.5) mg/dL Magnesium (1.6-2.3) mg/dL Total Bilirubin (0.2-1.3) mg/dL AST (14-36) U/L ALT (9-52) U/L Alkaline Phosphatase (38-126) U/L Total Protein (6.3-8.3) g/dL Albumin (3.5-5.0) g/dL Globulin (2.2-3.9) gm/dL Albumin/Globulin Ratio (1.0-2.1) 01/01/17 01/01/17 12/31/16 Range/Units 06:18 06:18 21:21 WBC 13.5 H (4.8-10.8) K/uL RBC 4.23 (3.80-5.20) Mil/uL Hgb 12.4 (11.0-16.0) g/dL Hct 38.7 (34.0-47.0) % MCV 91.4 (81.0-99.0) fL MCH 29.2 (27.0-31.0) pg MCHC 32.0 L (33.0-37.0) g/dL RDW 12.6 (11.5-14.5) % Plt Count 265 (130-400) K/uL MPV 9.8 (7.2-11.7) fL Neut % (Auto) 66.5 (50.0-75.0) % Lymph % (Auto) 25.1 (20.0-40.0) % Buchanan % (Auto) 7.7 (0.0-10.0) % Eos % (Auto) 0.2 (0.0-4.0) % Baso % (Auto) 0.5 (0.0-2.0) % Neut # 9.0 H (1.8-7.0) K/uL Lymph # 3.4 (1.0-4.3) K/uL Buchanan # 1.0 H (0.0-0.8) K/uL Eos # 0.0 (0.0-0.7) K/uL Baso # 0.1 (0.0-0.2) K/uL Puncture Site pCO2 (35-45) mm/Hg pO2 (30-55) mm/Hg HCO3 (21-28) mmol/L ABG pH (7.35-7.45) ABG Total CO2 (22-28) mmol/L ABG O2 Saturation (95-98) % ABG Base Excess (-2.0-3.0) mmol/L ABG Hemoglobin (11.7-17.4) g/dL ABG Carboxyhemoglobin (0.5-1.5) % POC ABG HHb (Measured) (0.0-5.0) % ABG Methemoglobin (0.0-3.0) % Miah Test VBG pH (7.32-7.43) VBG pCO2 (40-60) mmHg VBG HCO3 mmol/L VBG O2 Sat (Calc) (40-65) % VBG Base Excess (0.0-2.0) mmol/L Hgb O2 Saturation (95.0-98.0) % Sodium 138 (132-148) mmol/L Potassium 3.9 (3.6-5.2) mmol/L Chloride 101 (98-107) mmol/L Carbon Dioxide 23 (22-30) mmol/L Anion Gap 19 (10-20) BUN 16 (7-17) mg/dL Creatinine 0.7 (0.7-1.2) MG/DL Est GFR ( Amer) > 60 Est GFR (Non-Af Amer) > 60 POC Glucose (mg/dL) 134 H (65-110) mg/dL Random Glucose 117 H (65-105) mg/dL Calcium 9.4 (8.6-10.4) mg/dl Phosphorus 4.1 (2.5-4.5) mg/dL Magnesium 2.4 H (1.6-2.3) mg/dL Total Bilirubin 0.6 (0.2-1.3) mg/dL AST 124 H D (14-36) U/L ALT 25 (9-52) U/L Alkaline Phosphatase 72 (38-126) U/L Total Protein 8.4 H (6.3-8.3) g/dL Albumin 4.5 (3.5-5.0) g/dL Globulin 3.9 (2.2-3.9) gm/dL Albumin/Globulin Ratio 1.1 (1.0-2.1) Laboratory Results - last 24 hr 12/31/16 01/01/17 01/01/17 21:21 06:18 06:18 WBC 13.5 H RBC 4.23 Hgb 12.4 Hct 38.7 MCV 91.4 MCH 29.2 MCHC 32.0 L RDW 12.6 Plt Count 265 MPV 9.8 Neut % (Auto) 66.5 Lymph % (Auto) 25.1 Buchanan % (Auto) 7.7 Eos % (Auto) 0.2 Baso % (Auto) 0.5 Neut # 9.0 H Lymph # 3.4 Buchanan # 1.0 H Eos # 0.0 Baso # 0.1 Puncture Site pCO2 pO2 HCO3 ABG pH ABG Total CO2 ABG O2 Saturation ABG Base Excess ABG Hemoglobin ABG Carboxyhemoglobin POC ABG HHb (Measured) ABG Methemoglobin Miah Test VBG pH VBG pCO2 VBG HCO3 VBG O2 Sat (Calc) VBG Base Excess Hgb O2 Saturation Sodium 138 Potassium 3.9 Chloride 101 Carbon Dioxide 23 Anion Gap 19 BUN 16 Creatinine 0.7 Est GFR ( Amer) > 60 Est GFR (Non-Af Amer) > 60 POC Glucose (mg/dL) 134 H Random Glucose 117 H Calcium 9.4 Phosphorus 4.1 Magnesium 2.4 H Total Bilirubin 0.6 AST 124 H D ALT 25 Alkaline Phosphatase 72 Total Protein 8.4 H Albumin 4.5 Globulin 3.9 Albumin/Globulin Ratio 1.1 01/01/17 01/01/17 01/01/17 07:32 11:53 15:45 WBC RBC Hgb Hct MCV MCH MCHC RDW Plt Count MPV Neut % (Auto) Lymph % (Auto) [place] % (Auto) Eos % (Auto) Baso % (Auto) Neut # Lymph # [place] # Eos # Baso # Puncture Site Na pCO2 pO2 43 HCO3 ABG pH ABG Total CO2 ABG O2 Saturation ABG Base Excess ABG Hemoglobin ABG Carboxyhemoglobin POC ABG HHb (Measured) ABG Methemoglobin Miah Test Na VBG pH 7.42 VBG pCO2 40 VBG HCO3 25.5 VBG O2 Sat (Calc) 74.9 H VBG Base Excess 1.3 Hgb O2 Saturation Sodium Potassium Chloride Carbon Dioxide Anion Gap BUN Creatinine Est GFR ( Amer) Est GFR (Non-Af Amer) POC Glucose (mg/dL) 142 H 116 H Random Glucose Calcium Phosphorus Magnesium Total Bilirubin AST ALT Alkaline Phosphatase Total Protein Albumin Globulin Albumin/Globulin Ratio 01/01/17 01/01/17 01/01/17 15:45 15:45 16:56 WBC RBC Hgb Hct MCV MCH MCHC RDW Plt Count MPV Neut % (Auto) Lymph % (Auto) [place] % (Auto) Eos % (Auto) Baso % (Auto) Neut # Lymph # [place] # Eos # Baso # Puncture Site Na Na pCO2 36 pO2 137 H 48 HCO3 25.4 ABG pH 7.44 ABG Total CO2 25.6 ABG O2 Saturation 98.6 H ABG Base Excess 0.7 ABG Hemoglobin 15.1 ABG Carboxyhemoglobin 1.2 POC ABG HHb (Measured) 1.4 ABG Methemoglobin 1.3 Miah Test Na Na VBG pH 7.36 VBG pCO2 39 L VBG HCO3 22.1 VBG O2 Sat (Calc) 82.9 H VBG Base Excess -3.1 L Hgb O2 Saturation 96.1 Sodium Potassium Chloride Carbon Dioxide Anion Gap BUN Creatinine Est GFR ( Amer) Est GFR (Non-Af Amer) POC Glucose (mg/dL) 108 Random Glucose Calcium Phosphorus Magnesium Total Bilirubin AST ALT Alkaline Phosphatase Total Protein Albumin Globulin Albumin/Globulin Ratio Critical Care Progress Note - Nutrition Nutrition: Nutrition Category Date Time Status Liquid Diet [DIET] Diets 01/01/17 Breakfast Active Attending/Attestation - Attestation I have personally seen and examined this patient.: Yes I have fully participated in the care of the patient.: Yes I have reviewed all pertinent clinical information: Yes Notes (Text): 01/01/17 17:48 Patient seen and examined in the intensive care unit. Cardiac catheterization showed normal pulmonary pressures, 90The % obstructive osteal, medium to large sized obtuse marginal branch of the left circumflex coronary artery and normal LV systolic function Plan is for PCI tomorrow at [facility] Continue present treatment
[2017-01-01] MEDS: Enoxaparin 100 mg Syringe SC SCH (11:36)
[2017-01-01] MEDS ORDERED: Midazolam 2 MG/2 ML VIAL ONE (15:09)
[2017-01-01] MEDS ORDERED: Lidocaine 2% Inj (20ml) ONE (15:14)
--- NOTE | 2017-01-01 15:37 | CP.PCM.PN ---
Subjective - Date & Time of Evaluation Date of Evaluation: 01/01/17 Time of Evaluation: 16:00 - Subjective Subjective: Patient was seen and examined in ICU Denies any chest pain Status post cardiac catheterization today. Objective - Vital Signs/Intake and Output Vital Signs (last 24 hours): Temp Pulse Resp BP Pulse Ox 98.4 F 67 22 107/59 L 100 01/01/17 12:00 01/01/17 14:01 01/01/17 14:01 01/01/17 14:01 01/01/17 14:01 Intake and Output: 01/01/17 01/01/17 06:59 18:59 Intake Total 340 360 Output Total 200 600 Balance 140 -240 - Medications Medications: Current Medications Aspirin (Ecotrin) 81 mg PO DAILY [facility] Last Admin: 01/01/17 10:11 Dose: 81 mg Clopidogrel Bisulfate (Plavix) 75 mg PO DAILY [facility] Last Admin: 01/01/17 10:11 Dose: 75 mg Enoxaparin Sodium (Lovenox) 90 mg SC Q12 [facility] Last Admin: 01/01/17 11:36 Dose: Not Given Famotidine (Pepcid) 20 mg IVP Q12 [facility] Last Admin: 01/01/17 10:11 Dose: 20 mg Insulin Human Regular (Novolin R) 0 unit SC ACHS [facility] PRN Reason: Protocol Last Admin: 01/01/17 13:15 Dose: Not Given Losartan Potassium (Cozaar) 25 mg PO DAILY [facility] Last Admin: 01/01/17 10:18 Dose: 25 mg Metoprolol Tartrate (Lopressor) 50 mg PO BID [facility] Last Admin: 01/01/17 10:17 Dose: 50 mg Nitroglycerin (Nitro-Bid 2% Oint) 1 ea TOP Q6H PRN PRN Reason: pain Ondansetron HCl (Zofran Inj) 4 mg IVP Q6H PRN PRN Reason: Nausea/Vomiting Last Admin: 12/30/16 20:35 Dose: 4 mg - Labs Labs: 01/01/17 06:18 01/01/17 06:18 PT 12.7 SECONDS (9.7-12.2) H 12/31/16 06:30 INR 1.1 12/31/16 06:30 APTT 38 SECONDS (21-34) H 12/31/16 06:30 - Constitutional Appears: No Acute Distress - Head Exam Head Exam: ATRAUMATIC - ENT Exam ENT Exam: Mucous Membranes Moist - Respiratory Exam Respiratory Exam: Clear to Ausculation Bilateral - Cardiovascular Exam Cardiovascular Exam: REGULAR RHYTHM, +S1, +S2 - GI/Abdominal Exam GI & Abdominal Exam: Soft. absent: Tenderness - Extremities Exam Extremities Exam: absent: Pedal Edema - Neurological Exam Neurological Exam: Alert, Oriented x3 Assessment and Plan (1) Acute coronary syndrome Assessment & Plan: Status post cardiac catheterization today. Cardiac catheterization showed persistent SVC draining into coronary sinus, normal pulmonary pressures, 90% occlusion of the medium to large sized obtuse marginal branch of the left circumflex artery and normal LV systolic function. Echocardiographic suggestion off by me hypertension was not stratified as per cardiology. 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 Status: Acute (2) Hypertension Assessment & Plan: Controlled on current medication. Status: Acute
[2017-01-01 15:50] LABS: ARTERIAL BLOOD HGB O2 SAT 96.1 % (95.0-98.0); CARBOXYHEMOGLOBIN 1.2 % (0.5-1.5); HHB 1.4 % (0.0-5.0); METHEMOGLOBIN 1.3 % (0.0-3.0)
--- NOTE | 2017-01-01 15:53 | CP.PCM.PN ---
Subjective - Date & Time of Evaluation Date of Evaluation: 01/01/17 Time of Evaluation: 15:51 - Subjective Subjective: No recurrence of chest pain, dyspnea, palpitations syncope edema Objective - Vital Signs/Intake and Output Vital Signs (last 24 hours): Temp Pulse Resp BP Pulse Ox 98.4 F 67 22 107/59 L 100 01/01/17 12:00 01/01/17 14:01 01/01/17 14:01 01/01/17 14:01 01/01/17 14:01 Intake and Output: 01/01/17 01/01/17 06:59 18:59 Intake Total 340 360 Output Total 200 600 Balance 140 -240 - Medications Medications: Current Medications Aspirin (Ecotrin) 81 mg PO DAILY [facility] Last Admin: 01/01/17 10:11 Dose: 81 mg Clopidogrel Bisulfate (Plavix) 75 mg PO DAILY [facility] Last Admin: 01/01/17 10:11 Dose: 75 mg Enoxaparin Sodium (Lovenox) 90 mg SC Q12 [facility] Last Admin: 01/01/17 11:36 Dose: Not Given Famotidine (Pepcid) 20 mg IVP Q12 [facility] Last Admin: 01/01/17 10:11 Dose: 20 mg Insulin Human Regular (Novolin R) 0 unit SC [facility] PRN Reason: Protocol Last Admin: 01/01/17 13:15 Dose: Not Given Losartan Potassium (Cozaar) 25 mg PO DAILY [facility] Last Admin: 01/01/17 10:18 Dose: 25 mg Metoprolol Tartrate (Lopressor) 50 mg PO BID [facility] Last Admin: 01/01/17 10:17 Dose: 50 mg Nitroglycerin (Nitro-Bid 2% Oint) 1 ea TOP Q6H PRN PRN Reason: pain Ondansetron HCl (Zofran Inj) 4 mg IVP Q6H PRN PRN Reason: Nausea/Vomiting Last Admin: 12/30/16 20:35 Dose: 4 mg - Labs Labs: 01/01/17 06:18 01/01/17 06:18 PT 12.7 SECONDS (9.7-12.2) H 12/31/16 06:30 INR 1.1 12/31/16 06:30 APTT 38 SECONDS (21-34) H 12/31/16 06:30 - Constitutional Appears: Well, No Acute Distress - Head Exam Head Exam: NORMAL INSPECTION - Eye Exam Eye Exam: EOMI - ENT Exam ENT Exam: Mucous Membranes Moist - Neck Exam Neck Exam: Normal Inspection - Respiratory Exam Respiratory Exam: Clear to Ausculation Bilateral - Cardiovascular Exam Cardiovascular Exam: REGULAR RHYTHM - GI/Abdominal Exam GI & Abdominal Exam: Normal Bowel Sounds - Extremities Exam Extremities Exam: Normal Inspection - Neurological Exam Neurological Exam: Alert, Awake, Oriented x3 Assessment and Plan - Assessment and Plan (Free Text) Assessment: Ms. thibodeaux as alluded earlier presented with a chest pain syndrome, subtle EKG changes elevated serum troponin normal LV systolic function and pulmonary hypertension and a dilated coronary sinus on the echocardiogram Cardiac catheterization showed a persistent SVC draining in the coronary sinus, normal pulmonary pressures, 90The % obstructive osteal, medium to large sized obtuse marginal branch of the left circumflex coronary artery and normal LV systolic function Echocardiographic suggestion of pulmonary hypertension was not ratified; oxymetry did not reveal any step up excluding a significant intra-cardiac shunt The dilated coronary sinus is an incidental finding The single artery coronary artery disease with otherwise pristine arteries on a background of soft vascular risk factors is difficult to explain on the basis of atherosclerosis; emboli, dissection are unlikely possibilities; there is no setting for an insitu thrombotic process Plan continue with DAPT, lovenox [place]in [place] [facility] [place]
[2017-01-01 15:54] LABS: VENOUS BLOOD GAS BASE EXCESS 1.3 mmol/L (0.0-2.0); VENOUS BLOOD GAS PCO2 40 mmHg (40-60); VENOUS BLOOD PH 7.42 (7.32-7.43)
[2017-01-01 16:04] LABS: VENOUS BLOOD GAS BASE EXCESS -3.1 mmol/L (0.0-2.0); VENOUS BLOOD GAS PCO2 39 mmHg (40-60); VENOUS BLOOD PH 7.36 (7.32-7.43)
--- NOTE | 2017-01-02 06:47 | CP.CCUPN ---
<Jese Claire - Last Filed: 01/02/17 11:06> CCU Subjective - Physician Review Subjective (Free Text): 01/02/17 07:40 Pt seen and examined at bedside. Nursing reports no acute events overnight. Pt for transfer to [facility] today for PCI. She denies any complaints at this time. Critical Care Time Spent (in minutes): 30 CCU Objective - Vital Signs / Intake & Output Vital Signs (Last 4 hours): Vital Signs Pulse Resp BP Pulse Ox 01/02/17 05:51 66 21 98/58 L 97 01/02/17 05:36 70 21 94/56 L 97 01/02/17 05:21 65 19 96/54 L 96 01/02/17 05:06 64 21 90/52 L 97 01/02/17 05:00 64 21 97 01/02/17 04:52 64 23 99/57 L 98 01/02/17 04:37 82 21 105/10 L 100 01/02/17 04:21 67 16 114/65 100 01/02/17 04:06 70 21 103/62 98 01/02/17 04:00 77 17 100 01/02/17 03:51 71 109/66 98 01/02/17 03:36 65 93/66 L 96 01/02/17 03:21 65 99/57 L 96 01/02/17 03:06 69 101/68 100 01/02/17 03:00 67 96 01/02/17 02:51 78 95/61 L 97 Intake and Output (Last 8hrs): Intake & Output 01/01/17 01/01/17 01/02/17 14:59 22:59 06:59 Intake Total 360 Output Total 800 100 Balance -440 -100 Intake: Oral 360 Output: Urine 800 100 Urine, Voided 800 100 - Physical Exam Head: Positive for: Atraumatic, Normocephalic Pupils: Positive for: PERRL Extroacular Muscles: Positive for: EOMI Conjunctiva: Positive for: Normal Mouth: Positive for: Moist Mucous Membranes Neck: Positive for: Normal Range of Motion. Negative for: JVD Respiratory/Chest: Positive for: Clear to Auscultation. Negative for: Respiratory Distress, Accessory Muscle Use, Rales, Retracting, Rhonchi Cardiovascular: Positive for: Regular Rate and Rhythm, Normal S1, S2. Negative for: Murmurs Abdomen: Positive for: Normal Bowel Sounds. Negative for: Tenderness, Distention Upper Extremity: Positive for: Normal Inspection. Negative for: Edema Lower Extremity: Positive for: Normal Inspection, Other (no wounds, vericose veins noted). Negative for: Edema Neurological: Positive for: GCS=15, CN II-XII Intact, Speech Normal Skin: Positive for: Warm, Dry Psychiatric: Positive for: Alert, Oriented x 3 - Medications Active Medications: Active Medications Generic Name Dose Route Start Last Admin Trade Name Freq PRN Reason Stop Dose Admin Aspirin 81 mg 12/31/16 10:00 01/01/17 10:11 Ecotrin PO 81 mg DAILY GUY Administration Clopidogrel Bisulfate 75 mg 12/31/16 17:45 01/01/17 10:11 Plavix PO 75 mg DAILY GUY Administration Enoxaparin Sodium 90 mg 12/30/16 22:00 01/01/17 11:36 Lovenox SC Not Given Q12 GUY Famotidine 20 mg 12/30/16 11:15 01/01/17 23:53 Pepcid IVP 20 mg Q12 GUY Administration Insulin Human Regular 0 unit 12/31/16 16:30 01/01/17 23:54 Novolin R SC Not Given ACHS [facility] Protocol Losartan Potassium 25 mg 12/30/16 18:46 01/01/17 10:18 Cozaar PO 25 mg DAILY GUY Administration Metoprolol Tartrate 50 mg 12/30/16 18:45 01/01/17 17:31 Lopressor PO 50 mg BID GUY Administration Nitroglycerin 1 ea 12/30/16 12:20 Nitro-Bid 2% Oint TOP Q6H PRN pain Ondansetron HCl 4 mg 12/30/16 11:15 12/30/16 20:35 Zofran Inj IVP 4 mg Q6H PRN Administration Nausea/Vomiting - Patient Studies Lab Studies: Microbiology Studies 12/30/16 19:32 MRSA Culture (Admit) - Final Naris MRSA NOT DETECTED Lab Studies 01/01/17 01/01/17 01/01/17 Range/Units 21:05 16:56 15:45 Puncture Site Na pCO2 (35-45) mm/Hg pO2 48 (30-55) mm/Hg HCO3 (21-28) mmol/L ABG pH (7.35-7.45) ABG Total CO2 (22-28) mmol/L ABG O2 Saturation (95-98) % ABG Base Excess (-2.0-3.0) mmol/L ABG Hemoglobin (11.7-17.4) g/dL ABG Carboxyhemoglobin (0.5-1.5) % POC ABG HHb (Measured) (0.0-5.0) % ABG Methemoglobin (0.0-3.0) % Miah Test Na VBG pH 7.36 (7.32-7.43) VBG pCO2 39 L (40-60) mmHg VBG HCO3 22.1 mmol/L VBG O2 Sat (Calc) 82.9 H (40-65) % VBG Base Excess -3.1 L (0.0-2.0) mmol/L Hgb O2 Saturation (95.0-98.0) % Sodium (132-148) mmol/L Potassium (3.6-5.2) mmol/L Chloride (98-107) mmol/L Carbon Dioxide (22-30) mmol/L Anion Gap (10-20) BUN (7-17) mg/dL Creatinine (0.7-1.2) MG/DL Est GFR ( Amer) Est GFR (Non-Af Amer) POC Glucose (mg/dL) 132 H 108 (65-110) mg/dL Random Glucose (65-105) mg/dL Calcium (8.6-10.4) mg/dl Phosphorus (2.5-4.5) mg/dL Magnesium (1.6-2.3) mg/dL Total Bilirubin (0.2-1.3) mg/dL AST (14-36) U/L ALT (9-52) U/L Alkaline Phosphatase (38-126) U/L Total Protein (6.3-8.3) g/dL Albumin (3.5-5.0) g/dL Globulin (2.2-3.9) gm/dL Albumin/Globulin Ratio (1.0-2.1) 01/01/17 01/01/17 01/01/17 Range/Units 15:45 15:45 11:53 Puncture Site Na Na pCO2 36 (35-45) mm/Hg pO2 137 H 43 (30-55) mm/Hg HCO3 25.4 (21-28) mmol/L ABG pH 7.44 (7.35-7.45) ABG Total CO2 25.6 (22-28) mmol/L ABG O2 Saturation 98.6 H (95-98) % ABG Base Excess 0.7 (-2.0-3.0) mmol/L ABG Hemoglobin 15.1 (11.7-17.4) g/dL ABG Carboxyhemoglobin 1.2 (0.5-1.5) % POC ABG HHb (Measured) 1.4 (0.0-5.0) % ABG Methemoglobin 1.3 (0.0-3.0) % Miah Test Na Na VBG pH 7.42 (7.32-7.43) VBG pCO2 40 (40-60) mmHg VBG HCO3 25.5 mmol/L VBG O2 Sat (Calc) 74.9 H (40-65) % VBG Base Excess 1.3 (0.0-2.0) mmol/L Hgb O2 Saturation 96.1 (95.0-98.0) % Sodium (132-148) mmol/L Potassium (3.6-5.2) mmol/L Chloride (98-107) mmol/L Carbon Dioxide (22-30) mmol/L Anion Gap (10-20) BUN (7-17) mg/dL Creatinine (0.7-1.2) MG/DL Est GFR ( Amer) Est GFR (Non-Af Amer) POC Glucose (mg/dL) 116 H (65-110) mg/dL Random Glucose (65-105) mg/dL Calcium (8.6-10.4) mg/dl Phosphorus (2.5-4.5) mg/dL Magnesium (1.6-2.3) mg/dL Total Bilirubin (0.2-1.3) mg/dL AST (14-36) U/L ALT (9-52) U/L Alkaline Phosphatase (38-126) U/L Total Protein (6.3-8.3) g/dL Albumin (3.5-5.0) g/dL Globulin (2.2-3.9) gm/dL Albumin/Globulin Ratio (1.0-2.1) 01/01/17 01/01/17 Range/Units 07:32 06:18 Puncture Site pCO2 (35-45) mm/Hg pO2 (30-55) mm/Hg HCO3 (21-28) mmol/L ABG pH (7.35-7.45) ABG Total CO2 (22-28) mmol/L ABG O2 Saturation (95-98) % ABG Base Excess (-2.0-3.0) mmol/L ABG Hemoglobin (11.7-17.4) g/dL ABG Carboxyhemoglobin (0.5-1.5) % POC ABG HHb (Measured) (0.0-5.0) % ABG Methemoglobin (0.0-3.0) % Miah Test VBG pH (7.32-7.43) VBG pCO2 (40-60) mmHg VBG HCO3 mmol/L VBG O2 Sat (Calc) (40-65) % VBG Base Excess (0.0-2.0) mmol/L Hgb O2 Saturation (95.0-98.0) % Sodium 138 (132-148) mmol/L Potassium 3.9 (3.6-5.2) mmol/L Chloride 101 (98-107) mmol/L Carbon Dioxide 23 (22-30) mmol/L Anion Gap 19 (10-20) BUN 16 (7-17) mg/dL Creatinine 0.7 (0.7-1.2) MG/DL Est GFR ( Amer) > 60 Est GFR (Non-Af Amer) > 60 POC Glucose (mg/dL) 142 H (65-110) mg/dL Random Glucose 117 H (65-105) mg/dL Calcium 9.4 (8.6-10.4) mg/dl Phosphorus 4.1 (2.5-4.5) mg/dL Magnesium 2.4 H (1.6-2.3) mg/dL Total Bilirubin 0.6 (0.2-1.3) mg/dL AST 124 H D (14-36) U/L ALT 25 (9-52) U/L Alkaline Phosphatase 72 (38-126) U/L Total Protein 8.4 H (6.3-8.3) g/dL Albumin 4.5 (3.5-5.0) g/dL Globulin 3.9 (2.2-3.9) gm/dL Albumin/Globulin Ratio 1.1 (1.0-2.1) Laboratory Results - last 24 hr 01/01/17 01/01/17 01/01/17 06:18 07:32 11:53 Puncture Site pCO2 pO2 HCO3 ABG pH ABG Total CO2 ABG O2 Saturation ABG Base Excess ABG Hemoglobin ABG Carboxyhemoglobin POC ABG HHb (Measured) ABG Methemoglobin Miah Test VBG pH VBG pCO2 VBG HCO3 VBG O2 Sat (Calc) VBG Base Excess Hgb O2 Saturation Sodium 138 Potassium 3.9 Chloride 101 Carbon Dioxide 23 Anion Gap 19 BUN 16 Creatinine 0.7 Est GFR ( Amer) > 60 Est GFR (Non-Af Amer) > 60 POC Glucose (mg/dL) 142 H 116 H Random Glucose 117 H Calcium 9.4 Phosphorus 4.1 Magnesium 2.4 H Total Bilirubin 0.6 AST 124 H D ALT 25 Alkaline Phosphatase 72 Total Protein 8.4 H Albumin 4.5 Globulin 3.9 Albumin/Globulin Ratio 1.1 01/01/17 01/01/17 01/01/17 15:45 15:45 15:45 Puncture Site Na Na Na pCO2 36 pO2 43 137 H 48 HCO3 25.4 ABG pH 7.44 ABG Total CO2 25.6 ABG O2 Saturation 98.6 H ABG Base Excess 0.7 ABG Hemoglobin 15.1 ABG Carboxyhemoglobin 1.2 POC ABG HHb (Measured) 1.4 ABG Methemoglobin 1.3 Miah Test Na Na Na VBG pH 7.42 7.36 VBG pCO2 40 39 L VBG HCO3 25.5 22.1 VBG O2 Sat (Calc) 74.9 H 82.9 H VBG Base Excess 1.3 -3.1 L Hgb O2 Saturation 96.1 Sodium Potassium Chloride Carbon Dioxide Anion Gap BUN Creatinine Est GFR ( Amer) Est GFR (Non-Af Amer) POC Glucose (mg/dL) Random Glucose Calcium Phosphorus Magnesium Total Bilirubin AST ALT Alkaline Phosphatase Total Protein Albumin Globulin Albumin/Globulin Ratio 01/01/17 01/01/17 16:56 21:05 Puncture Site pCO2 pO2 HCO3 ABG pH ABG Total CO2 ABG O2 Saturation ABG Base Excess ABG Hemoglobin ABG Carboxyhemoglobin POC ABG HHb (Measured) ABG Methemoglobin Miah Test VBG pH VBG pCO2 VBG HCO3 VBG O2 Sat (Calc) VBG Base Excess Hgb O2 Saturation Sodium Potassium Chloride Carbon Dioxide Anion Gap BUN Creatinine Est GFR ( Amer) Est GFR (Non-Af Amer) POC Glucose (mg/dL) 108 132 H Random Glucose Calcium Phosphorus Magnesium Total Bilirubin AST ALT Alkaline Phosphatase Total Protein Albumin Globulin Albumin/Globulin Ratio Fingerstick Blood Sugar Results: 132 Review of Systems - Constitutional Constitutional: absent: Fever, Chills - EENT Eyes: absent: Change in Vision Ears: absent: Decreased Hearing - Cardiovascular Cardiovascular: absent: Chest Pain, Chest Pain at Rest, Dyspnea - Respiratory Respiratory: absent: Cough, Dyspnea - Gastrointestinal Gastrointestinal: absent: Abdominal Pain, Nausea, Vomiting - Genitourinary Genitourinary: absent: Dysuria - Musculoskeletal Musculoskeletal: absent: Back Pain, Numbness, Tingling - Integumentary Integumentary: absent: Wounds Additional comments: admits vericose veins on legs - Neurological Neurological: absent: Headaches, Tingling, Weakness - Endocrine Endocrine: absent: Polydipsia, Polyphagia, Polyuria Critical Care Progress Note - Nutrition Nutrition: Nutrition Category Date Time Status NPO Diet [DIET] Diets 01/02/17 Breakfast Active Assessment/Plan - Assessment and Plan (Free Text) Assessment: 46F with PMHx of HTN, Hyperlipidemia, with new diagnosis of diabetes, who presents to ED for chest pain. Tropininemia. NSTEMI. Started on ASA/Plavix/ Lovenox. ECHO with severe pulmonary HTN. Elevated A1c. Cardiac cath showed 90% occlusion of obtuse marginal branch of the left circumflex artery. PCI on at [facility]. Plan: Pt STATUS: Full code, Admitted to ICU, plan for PCI today at [facility] @ 1pm. She will return to [facility] ICU after. Neuro: AAOx3 CV: ACS Elevated troponin (0.074 > 5.01 > 15.30 > 22.00>18) EKG (12/30/16): NSR. Possible Lt atrial enlargement. Incomplete RBBB. LVH with repolarization abnormality. Nitroglycerin and ASA 325mg PO in field Continue Crestor 20mg PO Daily, ASA 81mg PO Daily, Lopressor 25mg PO BID ECHO (12/30/16): LV normal size, wall thickness, and function. EF WNL (58%). Normal LV segmental wall motion. Moderate to severe tricuspid regurgitation. Moderate to severe pulmonary HTN. (see full report) Cardiac Cath (01/02/17): persistent SVC draining into coronary sinus, normal pulmonary pressures, 90% occlusion of obtuse marginal branch of the left circumflex artery and normal LV systolic function - PCI intervention today at [facility] Lipid panel: Triglycerides 151, Cholesterol 304, LDL 199, HDL 49 Cardiology Consult: Dr. Johnson, help appreciated - CT Angio PE protocol (12/31/16): negative for PE Hx HTN Normotensive or hypotensive in unit - Increased home Losartan to 25mg PO daily - Increased Lopressor to 50mg PO BID ENDO: Hemoglobin A1C: 6.5 Accuchecks - ISS for now, metformin to start after cardiac cath Monitor GI: Heart Healthy, Consistent Carb Diet Nausea Prophylaxis - Zofran 4mg IV PRN Pulm: O2 sat: 100% on room air CXR (12/30/16): NAD /Renal: NS @ 100ml/hr Hypokalemia - resolved, 4.33 on AM labs UA (12/30/16): 1+ blood, LE/nitrate negative - HCG negative UDS: negative Prophylaxis: SCDs Pepcid 20mg IV Q12 Lovenox 90mg SC Q12 (held for procedure today) <Catherine Cage - Last Filed: 01/02/17 13:48> CCU Objective - Vital Signs / Intake & Output Intake and Output (Last 8hrs): Intake & Output 01/01/17 01/02/17 01/02/17 22:59 06:59 14:59 Intake Total 720 0 Output Total 600 300 Balance 120 -300 Weight 194 lb 0.108 oz Intake: Oral 720 0 Output: Urine 600 300 Urine, Voided 600 300 Other: # Voids Urine, Voided 1 - Medications Active Medications: Active Medications Generic Name Dose Route Start Last Admin Trade Name Freq PRN Reason Stop Dose Admin Aspirin 81 mg 12/31/16 10:00 01/01/17 10:11 Ecotrin PO 81 mg DAILY GUY Administration Clopidogrel Bisulfate 75 mg 12/31/16 17:45 01/01/17 10:11 Plavix PO 75 mg DAILY GUY Administration Enoxaparin Sodium 90 mg 12/30/16 22:00 01/01/17 11:36 Lovenox SC Not Given Q12 GUY Famotidine 20 mg 12/30/16 11:15 01/01/17 23:53 Pepcid IVP 20 mg Q12 GUY Administration Insulin Human Regular 0 unit 12/31/16 16:30 01/01/17 23:54 Novolin R SC Not Given ACHS [facility] Protocol Losartan Potassium 25 mg 12/30/16 18:46 01/01/17 10:18 Cozaar PO 25 mg DAILY GUY Administration Metoprolol Tartrate 50 mg 12/30/16 18:45 01/01/17 17:31 Lopressor PO 50 mg BID GUY Administration Nitroglycerin 1 ea 12/30/16 12:20 Nitro-Bid 2% Oint TOP Q6H PRN pain Ondansetron HCl 4 mg 12/30/16 11:15 12/30/16 20:35 Zofran Inj IVP 4 mg Q6H PRN Administration Nausea/Vomiting - Patient Studies Lab Studies: Lab Studies 01/02/17 01/02/17 01/02/17 Range/Units 07:58 06:57 06:57 WBC 12.3 H (4.8-10.8) K/uL RBC 4.20 (3.80-5.20) Mil/uL Hgb 12.4 (11.0-16.0) g/dL Hct 37.9 (34.0-47.0) % MCV 90.2 (81.0-99.0) fL MCH 29.5 (27.0-31.0) pg MCHC 32.7 L (33.0-37.0) g/dL RDW 12.8 (11.5-14.5) % Plt Count 283 (130-400) K/uL MPV 9.7 (7.2-11.7) fL Neut % (Auto) 67.0 (50.0-75.0) % Lymph % (Auto) 26.7 (20.0-40.0) % [place] % (Auto) 5.4 (0.0-10.0) % Eos % (Auto) 0.2 (0.0-4.0) % Baso % (Auto) 0.7 (0.0-2.0) % Neut # 8.2 H (1.8-7.0) K/uL Lymph # 3.3 (1.0-4.3) K/uL [place] # 0.7 (0.0-0.8) K/uL Eos # 0.0 (0.0-0.7) K/uL Baso # 0.1 (0.0-0.2) K/uL Puncture Site pCO2 (35-45) mm/Hg pO2 (30-55) mm/Hg HCO3 (21-28) mmol/L ABG pH (7.35-7.45) ABG Total CO2 (22-28) mmol/L ABG O2 Saturation (95-98) % ABG Base Excess (-2.0-3.0) mmol/L ABG Hemoglobin (11.7-17.4) g/dL ABG Carboxyhemoglobin (0.5-1.5) % POC ABG HHb (Measured) (0.0-5.0) % ABG Methemoglobin (0.0-3.0) % Miah Test VBG pH (7.32-7.43) VBG pCO2 (40-60) mmHg VBG HCO3 mmol/L VBG O2 Sat (Calc) (40-65) % VBG Base Excess (0.0-2.0) mmol/L Hgb O2 Saturation (95.0-98.0) % Sodium 138 (132-148) mmol/L Potassium 4.3 (3.6-5.2) mmol/L Chloride 102 (98-107) mmol/L Carbon Dioxide 23 (22-30) mmol/L Anion Gap 18 (10-20) BUN 11 (7-17) mg/dL Creatinine 0.7 (0.7-1.2) MG/DL Est GFR ( Amer) > 60 Est GFR (Non-Af Amer) > 60 POC Glucose (mg/dL) 119 H (65-110) mg/dL Random Glucose 128 H (65-105) mg/dL Calcium 9.3 (8.6-10.4) mg/dl Phosphorus 4.1 (2.5-4.5) mg/dL Magnesium 2.5 H (1.6-2.3) mg/dL Total Bilirubin 0.9 (0.2-1.3) mg/dL AST 77 H D (14-36) U/L ALT 24 (9-52) U/L Alkaline Phosphatase 77 (38-126) U/L Total Protein 8.7 H (6.3-8.3) g/dL Albumin 4.5 (3.5-5.0) g/dL Globulin 4.2 H (2.2-3.9) gm/dL Albumin/Globulin Ratio 1.1 (1.0-2.1) 01/01/17 01/01/17 01/01/17 Range/Units 21:05 16:56 15:45 WBC (4.8-10.8) K/uL RBC (3.80-5.20) Mil/uL Hgb (11.0-16.0) g/dL Hct (34.0-47.0) % MCV (81.0-99.0) fL MCH (27.0-31.0) pg MCHC (33.0-37.0) g/dL RDW (11.5-14.5) % Plt Count (130-400) K/uL MPV (7.2-11.7) fL Neut % (Auto) (50.0-75.0) % Lymph % (Auto) (20.0-40.0) % [place] % (Auto) (0.0-10.0) % Eos % (Auto) (0.0-4.0) % Baso % (Auto) (0.0-2.0) % Neut # (1.8-7.0) K/uL Lymph # (1.0-4.3) K/uL [place] # (0.0-0.8) K/uL Eos # (0.0-0.7) K/uL Baso # (0.0-0.2) K/uL Puncture Site Na pCO2 (35-45) mm/Hg pO2 48 (30-55) mm/Hg HCO3 (21-28) mmol/L ABG pH (7.35-7.45) ABG Total CO2 (22-28) mmol/L ABG O2 Saturation (95-98) % ABG Base Excess (-2.0-3.0) mmol/L ABG Hemoglobin (11.7-17.4) g/dL ABG Carboxyhemoglobin (0.5-1.5) % POC ABG HHb (Measured) (0.0-5.0) % ABG Methemoglobin (0.0-3.0) % Miah Test Na VBG pH 7.36 (7.32-7.43) VBG pCO2 39 L (40-60) mmHg VBG HCO3 22.1 mmol/L VBG O2 Sat (Calc) 82.9 H (40-65) % VBG Base Excess -3.1 L (0.0-2.0) mmol/L Hgb O2 Saturation (95.0-98.0) % Sodium (132-148) mmol/L Potassium (3.6-5.2) mmol/L Chloride (98-107) mmol/L Carbon Dioxide (22-30) mmol/L Anion Gap (10-20) BUN (7-17) mg/dL Creatinine (0.7-1.2) MG/DL Est GFR ( Amer) Est GFR (Non-Af Amer) POC Glucose (mg/dL) 132 H 108 (65-110) mg/dL Random Glucose (65-105) mg/dL Calcium (8.6-10.4) mg/dl Phosphorus (2.5-4.5) mg/dL Magnesium (1.6-2.3) mg/dL Total Bilirubin (0.2-1.3) mg/dL AST (14-36) U/L ALT (9-52) U/L Alkaline Phosphatase (38-126) U/L Total Protein (6.3-8.3) g/dL Albumin (3.5-5.0) g/dL Globulin (2.2-3.9) gm/dL Albumin/Globulin Ratio (1.0-2.1) 01/01/17 01/01/17 Range/Units 15:45 15:45 WBC (4.8-10.8) K/uL RBC (3.80-5.20) Mil/uL Hgb (11.0-16.0) g/dL Hct (34.0-47.0) % MCV (81.0-99.0) fL MCH (27.0-31.0) pg MCHC (33.0-37.0) g/dL RDW (11.5-14.5) % Plt Count (130-400) K/uL MPV (7.2-11.7) fL Neut % (Auto) (50.0-75.0) % Lymph % (Auto) (20.0-40.0) % [place] % (Auto) (0.0-10.0) % Eos % (Auto) (0.0-4.0) % Baso % (Auto) (0.0-2.0) % Neut # (1.8-7.0) K/uL Lymph # (1.0-4.3) K/uL [place] # (0.0-0.8) K/uL Eos # (0.0-0.7) K/uL Baso # (0.0-0.2) K/uL Puncture Site Na Na pCO2 36 (35-45) mm/Hg pO2 137 H 43 (30-55) mm/Hg HCO3 25.4 (21-28) mmol/L ABG pH 7.44 (7.35-7.45) ABG Total CO2 25.6 (22-28) mmol/L ABG O2 Saturation 98.6 H (95-98) % ABG Base Excess 0.7 (-2.0-3.0) mmol/L ABG Hemoglobin 15.1 (11.7-17.4) g/dL ABG Carboxyhemoglobin 1.2 (0.5-1.5) % POC ABG HHb (Measured) 1.4 (0.0-5.0) % ABG Methemoglobin 1.3 (0.0-3.0) % Miah Test Na Na VBG pH 7.42 (7.32-7.43) VBG pCO2 40 (40-60) mmHg VBG HCO3 25.5 mmol/L VBG O2 Sat (Calc) 74.9 H (40-65) % VBG Base Excess 1.3 (0.0-2.0) mmol/L Hgb O2 Saturation 96.1 (95.0-98.0) % Sodium (132-148) mmol/L Potassium (3.6-5.2) mmol/L Chloride (98-107) mmol/L Carbon Dioxide (22-30) mmol/L Anion Gap (10-20) BUN (7-17) mg/dL Creatinine (0.7-1.2) MG/DL Est GFR ( Amer) Est GFR (Non-Af Amer) POC Glucose (mg/dL) (65-110) mg/dL Random Glucose (65-105) mg/dL Calcium (8.6-10.4) mg/dl Phosphorus (2.5-4.5) mg/dL Magnesium (1.6-2.3) mg/dL Total Bilirubin (0.2-1.3) mg/dL AST (14-36) U/L ALT (9-52) U/L Alkaline Phosphatase (38-126) U/L Total Protein (6.3-8.3) g/dL Albumin (3.5-5.0) g/dL Globulin (2.2-3.9) gm/dL Albumin/Globulin Ratio (1.0-2.1) Laboratory Results - last 24 hr 01/01/17 01/01/17 01/01/17 15:45 15:45 15:45 WBC RBC Hgb Hct MCV MCH MCHC RDW Plt Count MPV Neut % (Auto) Lymph % (Auto) [place] % (Auto) Eos % (Auto) Baso % (Auto) Neut # Lymph # [place] # Eos # Baso # Puncture Site Na Na Na pCO2 36 pO2 43 137 H 48 HCO3 25.4 ABG pH 7.44 ABG Total CO2 25.6 ABG O2 Saturation 98.6 H ABG Base Excess 0.7 ABG Hemoglobin 15.1 ABG Carboxyhemoglobin 1.2 POC ABG HHb (Measured) 1.4 ABG Methemoglobin 1.3 Miah Test Na Na Na VBG pH 7.42 7.36 VBG pCO2 40 39 L VBG HCO3 25.5 22.1 VBG O2 Sat (Calc) 74.9 H 82.9 H VBG Base Excess 1.3 -3.1 L Hgb O2 Saturation 96.1 Sodium Potassium Chloride Carbon Dioxide Anion Gap BUN Creatinine Est GFR ( Amer) Est GFR (Non-Af Amer) POC Glucose (mg/dL) Random Glucose Calcium Phosphorus Magnesium Total Bilirubin AST ALT Alkaline Phosphatase Total Protein Albumin Globulin Albumin/Globulin Ratio 01/01/17 01/01/17 01/02/17 16:56 21:05 06:57 WBC 12.3 H RBC 4.20 Hgb 12.4 Hct 37.9 MCV 90.2 MCH 29.5 MCHC 32.7 L RDW 12.8 Plt Count 283 MPV 9.7 Neut % (Auto) 67.0 Lymph % (Auto) 26.7 [place] % (Auto) 5.4 Eos % (Auto) 0.2 Baso % (Auto) 0.7 Neut # 8.2 H Lymph # 3.3 [place] # 0.7 Eos # 0.0 Baso # 0.1 Puncture Site pCO2 pO2 HCO3 ABG pH ABG Total CO2 ABG O2 Saturation ABG Base Excess ABG Hemoglobin ABG Carboxyhemoglobin POC ABG HHb (Measured) ABG Methemoglobin Miah Test VBG pH VBG pCO2 VBG HCO3 VBG O2 Sat (Calc) VBG Base Excess Hgb O2 Saturation Sodium Potassium Chloride Carbon Dioxide Anion Gap BUN Creatinine Est GFR ( Amer) Est GFR (Non-Af Amer) POC Glucose (mg/dL) 108 132 H Random Glucose Calcium Phosphorus Magnesium Total Bilirubin AST ALT Alkaline Phosphatase Total Protein Albumin Globulin Albumin/Globulin Ratio 01/02/17 01/02/17 06:57 07:58 WBC RBC Hgb Hct MCV MCH MCHC RDW Plt Count MPV Neut % (Auto) Lymph % (Auto) [place] % (Auto) Eos % (Auto) Baso % (Auto) Neut # Lymph # [place] # Eos # Baso # Puncture Site pCO2 pO2 HCO3 ABG pH ABG Total CO2 ABG O2 Saturation ABG Base Excess ABG Hemoglobin ABG Carboxyhemoglobin POC ABG HHb (Measured) ABG Methemoglobin Miah Test VBG pH VBG pCO2 VBG HCO3 VBG O2 Sat (Calc) VBG Base Excess Hgb O2 Saturation Sodium 138 Potassium 4.3 Chloride 102 Carbon Dioxide 23 Anion Gap 18 BUN 11 Creatinine 0.7 Est GFR ( Amer) > 60 Est GFR (Non-Af Amer) > 60 POC Glucose (mg/dL) 119 H Random Glucose 128 H Calcium 9.3 Phosphorus 4.1 Magnesium 2.5 H Total Bilirubin 0.9 AST 77 H D ALT 24 Alkaline Phosphatase 77 Total Protein 8.7 H Albumin 4.5 Globulin 4.2 H Albumin/Globulin Ratio 1.1 Critical Care Progress Note - Nutrition Nutrition: Nutrition Category Date Time Status NPO Diet [DIET] Diets 01/02/17 Breakfast Active Attending/Attestation - Attestation I have personally seen and examined this patient.: Yes I have fully participated in the care of the patient.: Yes I have reviewed all pertinent clinical information: Yes Notes (Text): 01/02/17 13:44 Went this am to get PCI. Was not able to evaluate patient before she left to [facility].
[2017-01-02 07:02] LABS: BASO # 0.1 K/uL (0.0-0.2); BASO % 0.7 % (0.0-2.0); EOS % 0.2 % (0.0-4.0); HEMATOCRIT 37.9 % (34.0-47.0); LYMPH # 3.3 K/uL (1.0-4.3); LYMPH % 26.7 % (20.0-40.0); MEAN CELL VOLUME 90.2 fL (81.0-99.0); MEAN CORPUSCULAR HEMOGLOBIN 29.5 pg (27.0-31.0); MEAN CORPUSCULAR HGB CONC 32.7 g/dL (33.0-37.0); MEAN PLATELET VOLUME 9.7 fL (7.2-11.7); MONO # 0.7 K/uL (0.0-0.8); MONO % 5.4 % (0.0-10.0); NRBC % 0.1 % (0.0-2.0); RED CELL DISTRIBUTION WIDTH 12.8 % (11.5-14.5); WHITE BLOOD COUNT 12.3 K/uL (4.8-10.8)
[2017-01-02 07:21] LABS: CHLORIDE 102 mmol/L (98-107); POTASSIUM 4.3 mmol/L (3.6-5.2); SODIUM 138 mmol/L (132-148)
[2017-01-02 07:23] LABS: ALB/GLOB RATIO 1.1 (1.0-2.1); ALKALINE PHOSPHATASE 77 U/L (38-126); ALT/SGPT 24 U/L (9-52); AST/SGOT 77 U/L (14-36); BILIRUBIN,TOTAL 0.9 mg/dL (0.2-1.3); BLOOD UREA NITROGEN 11 mg/dL (7-17); CARBON DIOXIDE 23 mmol/L (22-30); GFR AFRICAN-AMERICAN > 60; GLUCOSE,RANDOM 128 mg/dL (65-105); TOTAL PROTEIN 8.7 g/dL (6.3-8.3)
[2017-01-02 07:24] LABS: CALCIUM 9.3 mg/dl (8.6-10.4); MAGNESIUM 2.5 mg/dL (1.6-2.3); PHOSPHOROUS 4.1 mg/dL (2.5-4.5)
[2017-01-02 11:54] VITALS: BP 122/70; PULSE 77; RESP 21; O2SAT 100
[2017-01-02 12:12] VITALS: TEMP 97.9
--- NOTE | 2017-01-02 18:36 | CARD ---
APPROVED REPORT EKG Measurement Heart [id number] <Conclusion> Normal sinus rhythm Possible Left atrial enlargement Left ventricular hypertrophy Nonspecific ST and T wave abnormality Abnormal ECG
--- NOTE | 2017-01-02 18:45 | CARD ---
APPROVED REPORT EKG Measurement Heart [id number] <Conclusion> Normal sinus rhythm Possible Left atrial enlargement Left ventricular hypertrophy Nonspecific T wave abnormality Abnormal ECG
--- NOTE | 2017-01-03 07:12 | CP.PCM.DIS ---
<Jese Claire - Last Filed: 01/06/17 06:57> Provider - Provider Date of Admission: 12/30/16 06:30 Attending physician: Lizandro Connors MD Primary care physician: Dr. Horn Consults: Dr. Johnson (major assembly lineman) Dr. Fletcher (third cook) Dr. Olson (inspector crystal) Time Spent in preparation of Discharge (in minutes): 40 Diagnosis - Discharge Diagnosis (1) Acute coronary syndrome Status: Acute Comment: see hospital course (2) Hypertension Status: Acute Comment: see hosptial course Hospital Course - Lab Results Lab Results: Micro Results 12/30/16 19:32 Naris MRSA Culture (Admit) - Final MRSA NOT DETECTED Most Recent Lab Values WBC 12.3 K/uL (4.8-10.8) H 01/02/17 06:57 RBC 4.20 Mil/uL (3.80-5.20) 01/02/17 06:57 Hgb 12.4 g/dL (11.0-16.0) 01/02/17 06:57 Hct 37.9 % (34.0-47.0) 01/02/17 06:57 MCV 90.2 fL (81.0-99.0) 01/02/17 06:57 MCH 29.5 pg (27.0-31.0) 01/02/17 06:57 MCHC 32.7 g/dL (33.0-37.0) L 01/02/17 06:57 RDW 12.8 % (11.5-14.5) 01/02/17 06:57 Plt Count 283 K/uL (130-400) 01/02/17 06:57 MPV 9.7 fL (7.2-11.7) 01/02/17 06:57 Neut % (Auto) 67.0 % (50.0-75.0) 01/02/17 06:57 Lymph % (Auto) 26.7 % (20.0-40.0) 01/02/17 06:57 Calvert % (Auto) 5.4 % (0.0-10.0) 01/02/17 06:57 Eos % (Auto) 0.2 % (0.0-4.0) 01/02/17 06:57 Baso % (Auto) 0.7 % (0.0-2.0) 01/02/17 06:57 Neut # 8.2 K/uL (1.8-7.0) H 01/02/17 06:57 Lymph # 3.3 K/uL (1.0-4.3) 01/02/17 06:57 Calvert # 0.7 K/uL (0.0-0.8) 01/02/17 06:57 Eos # 0.0 K/uL (0.0-0.7) 01/02/17 06:57 Baso # 0.1 K/uL (0.0-0.2) 01/02/17 06:57 PT 12.7 SECONDS (9.7-12.2) H 12/31/16 06:30 INR 1.1 12/31/16 06:30 APTT 38 SECONDS (21-34) H 12/31/16 06:30 D-Dimer, Quantitative < 200 ng/mlDDU (0-243) 12/30/16 17:00 Puncture Site Na 01/01/17 15:45 pCO2 36 mm/Hg (35-45) 01/01/17 15:45 pO2 48 mm/Hg (30-55) 01/01/17 15:45 HCO3 25.4 mmol/L (21-28) 01/01/17 15:45 ABG pH 7.44 (7.35-7.45) 01/01/17 15:45 ABG Total CO2 25.6 mmol/L (22-28) 01/01/17 15:45 ABG O2 Saturation 98.6 % (95-98) H 01/01/17 15:45 ABG Base Excess 0.7 mmol/L (-2.0-3.0) 01/01/17 15:45 ABG Hemoglobin 15.1 g/dL (11.7-17.4) 01/01/17 15:45 ABG Carboxyhemoglobin 1.2 % (0.5-1.5) 01/01/17 15:45 POC ABG HHb (Measured) 1.4 % (0.0-5.0) 01/01/17 15:45 ABG Methemoglobin 1.3 % (0.0-3.0) 01/01/17 15:45 Miah Test Na 01/01/17 15:45 VBG pH 7.36 (7.32-7.43) 01/01/17 15:45 VBG pCO2 39 mmHg (40-60) L 01/01/17 15:45 VBG HCO3 22.1 mmol/L 01/01/17 15:45 VBG O2 Sat (Calc) 82.9 % (40-65) H 01/01/17 15:45 VBG Base Excess -3.1 mmol/L (0.0-2.0) L 01/01/17 15:45 Hgb O2 Saturation 96.1 % (95.0-98.0) 01/01/17 15:45 Sodium 138 mmol/L (132-148) 01/02/17 06:57 Potassium 4.3 mmol/L (3.6-5.2) 01/02/17 06:57 Chloride 102 mmol/L (98-107) 01/02/17 06:57 Carbon Dioxide 23 mmol/L (22-30) 01/02/17 06:57 Anion Gap 18 (10-20) 01/02/17 06:57 BUN 11 mg/dL (7-17) 01/02/17 06:57 Creatinine 0.7 MG/DL (0.7-1.2) 01/02/17 06:57 Est GFR ( Amer) > 60 01/02/17 06:57 Est GFR (Non-Af Amer) > 60 01/02/17 06:57 POC Glucose (mg/dL) 119 mg/dL (65-110) H 01/02/17 07:58 Random Glucose 128 mg/dL (65-105) H 01/02/17 06:57 Hemoglobin A1c 6.5 % (4.2-6.5) 12/31/16 06:30 Calcium 9.3 mg/dl (8.6-10.4) 01/02/17 06:57 Phosphorus 4.1 mg/dL (2.5-4.5) 01/02/17 06:57 Magnesium 2.5 mg/dL (1.6-2.3) H 01/02/17 06:57 Total Bilirubin 0.9 mg/dL (0.2-1.3) 01/02/17 06:57 AST 77 U/L (14-36) H D 01/02/17 06:57 ALT 24 U/L (9-52) 01/02/17 06:57 Alkaline Phosphatase 77 U/L (38-126) 01/02/17 06:57 Total Creatine Kinase 1476 U/L (30-135) H 12/31/16 13:36 CK-MB (Mass) 15.8 ng/mL (0.0-3.38) H 12/31/16 13:36 Troponin I 0.0740 ng/mL (0.00-0.120) 12/30/16 05:26 Troponin I, Quant 18.4000 ng/mL (0.00-0.120) H* 12/31/16 13:36 NT-Pro-B Natriuret Pep 104 pg/mL (0-450) 12/30/16 05:26 Total Protein 8.7 g/dL (6.3-8.3) H 01/02/17 06:57 Albumin 4.5 g/dL (3.5-5.0) 01/02/17 06:57 Globulin 4.2 gm/dL (2.2-3.9) H 01/02/17 06:57 Albumin/Globulin Ratio 1.1 (1.0-2.1) 01/02/17 06:57 Triglycerides 151 mg/dL (0-149) H 12/31/16 06:30 Cholesterol 304 mg/dL (0-199) H 12/31/16 06:30 LDL Cholesterol Direct 199 mg/dL (0-129) H 12/31/16 06:30 HDL Cholesterol 49 mg/dL (30-70) 12/31/16 06:30 Urine Color Yellow (YELLOW) 12/30/16 05:30 Urine Clarity Clear (Clear) 12/30/16 05:30 Urine pH 5.0 (5.0-8.0) 12/30/16 05:30 Ur Specific [place] 1.017 (1.003-1.030) 12/30/16 05:30 Urine Protein Negative mg/dL (NEGATIVE) 12/30/16 05:30 Urine Glucose (UA) Normal mg/dL (Normal) 12/30/16 05:30 Urine Ketones Negative mg/dL (NEGATIVE) 12/30/16 05:30 Urine Blood 1+ (NEGATIVE) H 12/30/16 05:30 Urine Nitrate Negative (NEGATIVE) 12/30/16 05:30 Urine Bilirubin Negative (NEGATIVE) 12/30/16 05:30 Urine Urobilinogen Normal mg/dL (0.2-1.0) 12/30/16 05:30 Ur Leukocyte Esterase Neg Anthony/uL (Negative) 12/30/16 05:30 Urine WBC (Auto) 1 /hpf (0-5) 12/30/16 05:30 Urine RBC (Auto) 3 /hpf (0-3) 12/30/16 05:30 Ur Squamous Epith Cells 2 /hpf (0-5) 12/30/16 05:30 Urine HCG, Qual Negative (NEGATIVE) 12/30/16 05:30 Urine Opiates Screen Negative (NEGATIVE) 12/30/16 05:30 Urine Methadone Screen Negative (NEGATIVE) 12/30/16 05:30 Ur Barbiturates Screen Negative (NEGATIVE) 12/30/16 05:30 Ur Phencyclidine Scrn Negative (NEGATIVE) 12/30/16 05:30 Ur Amphetamines Screen Negative (NEGATIVE) 12/30/16 05:30 U Benzodiazepines Scrn Negative (NEGATIVE) 12/30/16 05:30 U Oth Cocaine Metabols Negative (NEGATIVE) 12/30/16 05:30 U Cannabinoids Screen Negative (NEGATIVE) 12/30/16 05:30 Alcohol, Quantitative < 10 mg/dl (0-10) 12/30/16 05:26 - Hospital Course Hospital Course: On admission: Patient is a 46 year old female, with PMHx of HTN and hyperlipidemia, who presents to [facility] emergency department for chest pain. Pt was brought in by ambulance, and was given aspirin/nitroglycerin in the field. Pt reports the chest pain began two days prior, "while she was painting her bathroom" and dismissed the pain as "gas pain/muscle pull." The pain worsened over the course of the two days, and was unresponsive to over the counter NSAIDs/TUMS. Pt describes the pain as an intermittent, sharp, crampy feeling, located in her mid sternal region, that does not radiate, which she initially rated as a '10/10 ,' but on exam has decreased to a 3/10. She admits associated shortness of breath when the chest pain worsened this AM. She denies ever having chest pain/ SOB like this before. She denies stressful activities/heavy lifting recently. She admits being diagnosed with hyperlipidemia 4 years ago and taking Lipitor daily, which was stopped 2 years ago by her PMD. She denies knowing the reason for why the statin was stopped. Pt denies palpitations, diaphoresis, abdominal pain, nausea, vomiting, or fever/chills. Hospital course: Patient presented on 12/30/16 for substernal chest pain. Initial troponin was negative, but subsequent were positive and up-trending. Dr. Johnson, cardiology, was consulted. D-dimer and CT chest for PE were both negative. ECHO showed ' Moderate to severe tricuspid regurgitation. Moderate to severe pulmonary HTN.' Cardiac cath performed on 01-01 showed 'persistent SVC draining into coronary sinus, normal pulmonary pressures, 90% occlusion of obtuse marginal branch of the left circumflex artery and normal LV systolic function.' Pt was transferred to [facility] on 01/02/2017 for PCI. During her stay pt was diagnosed with diabetes. She was placed on insulin sliding scale due to the contrast dye from the cat scan delaying metformin dosing. She was advised on leaving to follow up with her PMD, Dr. Cooper, for the senior living management of her HTN, hyperlipidemia, and diabetes. Discharge Exam - Head Exam Head Exam: ATRAUMATIC, NORMAL INSPECTION, NORMOCEPHALIC - Eye Exam Pupil Exam: PERRL - Neck Exam Neck exam: Full Rom - Respiratory Exam Respiratory Exam: Clear to PA & Lateral, NORMAL BREATHING PATTERN, UNREMARKABLE - Cardiovascular Exam Cardiovascular Exam: REGULAR RHYTHM, +S1, +S2 - GI/Abdominal Exam GI & Abdominal Exam: Normal Bowel Sounds, Soft - Extremities Exam Extremities exam: normal inspection, pedal pulses present Additional comments: vericose veins noted - Back Exam Back exam: absent: CVA tenderness (L), CVA tenderness (R) - Neurological Exam Neurological exam: Alert, Oriented x3 - Skin Skin Exam: Normal Color, Warm Discharge Plan - Follow Up Plan Condition: FAIR Disposition: Trans to Other Acute Care Hosp <Jorje Hornchema Burton - Last Filed: 01/13/17 13:54> Provider - Provider Date of Admission: 12/30/16 06:30 Attending physician: Lizandro Connors MD Diagnosis - Discharge Diagnosis (1) Acute coronary syndrome Status: Acute (2) Hypertension Status: Acute Hospital Course - Lab Results Lab Results: Micro Results 12/30/16 19:32 Naris MRSA Culture (Admit) - Final MRSA NOT DETECTED Most Recent Lab Values WBC 12.3 K/uL (4.8-10.8) H 01/02/17 06:57 RBC 4.20 Mil/uL (3.80-5.20) 01/02/17 06:57 Hgb 12.4 g/dL (11.0-16.0) 01/02/17 06:57 Hct 37.9 % (34.0-47.0) 01/02/17 06:57 MCV 90.2 fL (81.0-99.0) 01/02/17 06:57 MCH 29.5 pg (27.0-31.0) 01/02/17 06:57 MCHC 32.7 g/dL (33.0-37.0) L 01/02/17 06:57 RDW 12.8 % (11.5-14.5) 01/02/17 06:57 Plt Count 283 K/uL (130-400) 01/02/17 06:57 MPV 9.7 fL (7.2-11.7) 01/02/17 06:57 Neut % (Auto) 67.0 % (50.0-75.0) 01/02/17 06:57 Lymph % (Auto) 26.7 % (20.0-40.0) 01/02/17 06:57 Calvert % (Auto) 5.4 % (0.0-10.0) 01/02/17 06:57 Eos % (Auto) 0.2 % (0.0-4.0) 01/02/17 06:57 Baso % (Auto) 0.7 % (0.0-2.0) 01/02/17 06:57 Neut # 8.2 K/uL (1.8-7.0) H 01/02/17 06:57 Lymph # 3.3 K/uL (1.0-4.3) 01/02/17 06:57 Calvert # 0.7 K/uL (0.0-0.8) 01/02/17 06:57 Eos # 0.0 K/uL (0.0-0.7) 01/02/17 06:57 Baso # 0.1 K/uL (0.0-0.2) 01/02/17 06:57 PT 12.7 SECONDS (9.7-12.2) H 12/31/16 06:30 INR 1.1 12/31/16 06:30 APTT 38 SECONDS (21-34) H 12/31/16 06:30 D-Dimer, Quantitative < 200 ng/mlDDU (0-243) 12/30/16 17:00 Puncture Site Na 01/01/17 15:45 pCO2 36 mm/Hg (35-45) 01/01/17 15:45 pO2 48 mm/Hg (30-55) 01/01/17 15:45 HCO3 25.4 mmol/L (21-28) 01/01/17 15:45 ABG pH 7.44 (7.35-7.45) 01/01/17 15:45 ABG Total CO2 25.6 mmol/L (22-28) 01/01/17 15:45 ABG O2 Saturation 98.6 % (95-98) H 01/01/17 15:45 ABG Base Excess 0.7 mmol/L (-2.0-3.0) 01/01/17 15:45 ABG Hemoglobin 15.1 g/dL (11.7-17.4) 01/01/17 15:45 ABG Carboxyhemoglobin 1.2 % (0.5-1.5) 01/01/17 15:45 POC ABG HHb (Measured) 1.4 % (0.0-5.0) 01/01/17 15:45 ABG Methemoglobin 1.3 % (0.0-3.0) 01/01/17 15:45 Miah Test Na 01/01/17 15:45 VBG pH 7.36 (7.32-7.43) 01/01/17 15:45 VBG pCO2 39 mmHg (40-60) L 01/01/17 15:45 VBG HCO3 22.1 mmol/L 01/01/17 15:45 VBG O2 Sat (Calc) 82.9 % (40-65) H 01/01/17 15:45 VBG Base Excess -3.1 mmol/L (0.0-2.0) L 01/01/17 15:45 Hgb O2 Saturation 96.1 % (95.0-98.0) 01/01/17 15:45 Sodium 138 mmol/L (132-148) 01/02/17 06:57 Potassium 4.3 mmol/L (3.6-5.2) 01/02/17 06:57 Chloride 102 mmol/L (98-107) 01/02/17 06:57 Carbon Dioxide 23 mmol/L (22-30) 01/02/17 06:57 Anion Gap 18 (10-20) 01/02/17 06:57 BUN 11 mg/dL (7-17) 01/02/17 06:57 Creatinine 0.7 MG/DL (0.7-1.2) 01/02/17 06:57 Est GFR ( Amer) > 60 01/02/17 06:57 Est GFR (Non-Af Amer) > 60 01/02/17 06:57 POC Glucose (mg/dL) 119 mg/dL (65-110) H 01/02/17 07:58 Random Glucose 128 mg/dL (65-105) H 01/02/17 06:57 Hemoglobin A1c 6.5 % (4.2-6.5) 12/31/16 06:30 Calcium 9.3 mg/dl (8.6-10.4) 01/02/17 06:57 Phosphorus 4.1 mg/dL (2.5-4.5) 01/02/17 06:57 Magnesium 2.5 mg/dL (1.6-2.3) H 01/02/17 06:57 Total Bilirubin 0.9 mg/dL (0.2-1.3) 01/02/17 06:57 AST 77 U/L (14-36) H D 01/02/17 06:57 ALT 24 U/L (9-52) 01/02/17 06:57 Alkaline Phosphatase 77 U/L (38-126) 01/02/17 06:57 Total Creatine Kinase 1476 U/L (30-135) H 12/31/16 13:36 CK-MB (Mass) 15.8 ng/mL (0.0-3.38) H 12/31/16 13:36 Troponin I 0.0740 ng/mL (0.00-0.120) 12/30/16 05:26 Troponin I, Quant 18.4000 ng/mL (0.00-0.120) H* 12/31/16 13:36 NT-Pro-B Natriuret Pep 104 pg/mL (0-450) 12/30/16 05:26 Total Protein 8.7 g/dL (6.3-8.3) H 01/02/17 06:57 Albumin 4.5 g/dL (3.5-5.0) 01/02/17 06:57 Globulin 4.2 gm/dL (2.2-3.9) H 01/02/17 06:57 Albumin/Globulin Ratio 1.1 (1.0-2.1) 01/02/17 06:57 Triglycerides 151 mg/dL (0-149) H 12/31/16 06:30 Cholesterol 304 mg/dL (0-199) H 12/31/16 06:30 LDL Cholesterol Direct 199 mg/dL (0-129) H 12/31/16 06:30 HDL Cholesterol 49 mg/dL (30-70) 12/31/16 06:30 Urine Color Yellow (YELLOW) 12/30/16 05:30 Urine Clarity Clear (Clear) 12/30/16 05:30 Urine pH 5.0 (5.0-8.0) 12/30/16 05:30 Ur Specific [place] 1.017 (1.003-1.030) 12/30/16 05:30 Urine Protein Negative mg/dL (NEGATIVE) 12/30/16 05:30 Urine Glucose (UA) Normal mg/dL (Normal) 12/30/16 05:30 Urine Ketones Negative mg/dL (NEGATIVE) 12/30/16 05:30 Urine Blood 1+ (NEGATIVE) H 12/30/16 05:30 Urine Nitrate Negative (NEGATIVE) 12/30/16 05:30 Urine Bilirubin Negative (NEGATIVE) 12/30/16 05:30 Urine Urobilinogen Normal mg/dL (0.2-1.0) 12/30/16 05:30 Ur Leukocyte Esterase Neg Anthony/uL (Negative) 12/30/16 05:30 Urine WBC (Auto) 1 /hpf (0-5) 12/30/16 05:30 Urine RBC (Auto) 3 /hpf (0-3) 12/30/16 05:30 Ur Squamous Epith Cells 2 /hpf (0-5) 12/30/16 05:30 Urine HCG, Qual Negative (NEGATIVE) 12/30/16 05:30 Urine Opiates Screen Negative (NEGATIVE) 12/30/16 05:30 Urine Methadone Screen Negative (NEGATIVE) 12/30/16 05:30 Ur Barbiturates Screen Negative (NEGATIVE) 12/30/16 05:30 Ur Phencyclidine Scrn Negative (NEGATIVE) 12/30/16 05:30 Ur Amphetamines Screen Negative (NEGATIVE) 12/30/16 05:30 U Benzodiazepines Scrn Negative (NEGATIVE) 12/30/16 05:30 U Oth Cocaine Metabols Negative (NEGATIVE) 12/30/16 05:30 U Cannabinoids Screen Negative (NEGATIVE) 12/30/16 05:30 Alcohol, Quantitative < 10 mg/dl (0-10) 12/30/16 05:26 Attending/Attestation - Attestation I have personally seen and examined this patient.: Yes I have fully participated in the care of the patient.: Yes I have reviewed all pertinent clinical information, including history, physical exam and plan: Yes Notes (Text): 01/13/17 13:54 Patient was transferred to [facility] for further management. I agree with the discharge note by the resident.
--- NOTE | 2017-01-07 07:47 | CARDCATH ---
PROCEDURE DATE: 01/01/2017 This is a 46-year-old female who came with 3 days history of chest pain inconsistently related to exe rtion. Postadmission, she was noted to have elevated serum troponins up to 25. Electrocardiogram sh owed mild ST-T changes. Physical examination was normal. Her past medical history was significant f or systemic hypertension, hyperlipidemia and she was taking Lipitor. She was a nonsmoker. There is no family history of heart disease. Physical examination was completely normal. So, she was brought down to the dental laboratory technology teacher for possible right and left cardiac catheterization. An echocardiogram prior to this study showed a large dilated coronary sinus, severe pulmonary hyperte nsion, moderate tricuspid regurgitation, and normal left ventricular systolic function. DESCRIPTION OF PROCEDURE: She was brought down to the cardiac catheterization lab and, after an infor med consent, in a postabsorptive state, the right and the left groin were prepped in the usual fashio n. The right femoral vein and the right femoral artery were accessed by the Seldinger method and a 6 -[place] catheter was placed in the right femoral artery and a 7-[place] sheath was placed in the right femoral vein. Via the right femoral vein, a Gobler-Rudolph catheter was placed and pressures were measur ed from the right atrium, the right ventricle, the pulmonary artery and pulmonary capillary wedge pre ssures. Pressures were normal. Oximetry showed no significant step up. Incidentally, the catheter went into the large coronary sinus and into the left superior vena cava, and a venogram was obtained. The Gobler-Rudolph catheter was then removed. Then, a JL4 catheter was used to intubate the left ramírez ry system. The left coronary system showed that the left main was short and normal. The left anteri or descending artery showed a 20% proximal stenosis. The left circumflex was a dominant vessel, show ed a medium to large size obtuse marginal ostial stenosis up to 95-99% stenosis. The right coronary was small and nondominant. Next, a pigtail catheter was used to obtain an left ventriculogram which showed normal left ventricular systolic function. There was no gradient across the aortic valve when the catheter was pulled. Next, hemostasis maintained. The sheaths were discontinued and manual pre ssure was applied. IN SUMMARY: This patient has a 95-99% obstructive ostial obtuse marginal branch of the left circumfl ex coronary artery. There was a 20% proximal left anterior descending artery stenosis. The coronary system was left dominant. The right coronary was small and nonobstructive. The left ventricular sy stolic function was normal. Left ventricular diastolic pressures were normal. Pulmonary artery pres sures were normal. There was persistent left superior vena cava draining into the coronary sinus. RECOMMENDATIONS: Percutaneous intervention of the left circumflex. COMPLICATIONS: None. Ramon Johnson MD cc: [phone] TT: 01/06/2017 18:54:33 mn
--- NOTE | 2017-01-16 13:05 | CARD ---
APPROVED REPORT EKG Measurement Heart [id number] <Conclusion> Normal sinus rhythm Nonspecific T wave abnormality Prolonged QT Abnormal ECG
== END 2017-01-02 18:29 | disposition short-term general hospital (02) | DRG 122 ==
LOC: C.ER 04:49 → C.9E 06:30 → C.9I 17:51
PROVIDERS: ADMIT Internal Medicine; ATTEND Internal Medicine
PROC: 4A023N8 Measurement of Cardiac Sampling and Pressure, Bilateral, Percutaneous Approach (ICD-10-PCS; principal; 2017-01-01)
PROC: B2161ZZ Fluoroscopy of Right and Left Heart using Low Osmolar Contrast (ICD-10-PCS; 2017-01-01)
PROC: B2111ZZ Fluoroscopy of Multiple Coronary Arteries using Low Osmolar Contrast (ICD-10-PCS; 2017-01-01)
DX: I21.4 Non-ST elevation (NSTEMI) myocardial infarction (principal); Q26.1 Persistent left superior vena cava; I11.9 Hypertensive heart disease without heart failure; I27.2 Other secondary pulmonary hypertension; E11.9 Type 2 diabetes mellitus without complications; D72.829 Elevated white blood cell count, unspecified; E87.6 Hypokalemia; I36.1 Nonrheumatic tricuspid (valve) insufficiency; E78.5 Hyperlipidemia, unspecified; E66.9 Obesity, unspecified; I25.110 Atherosclerotic heart disease of native coronary artery with unstable angina pectoris

== ENCOUNTER 2017-09-30 13:30 | Emergency (ER) | payer MEDICAID ==
[2017-09-30 14:43] LABS: SQUAMOUS EPITHIAL 6 /hpf (0-5); URINE BACTERIA RARE (<OCC); URINE BILIRUBIN NEGATIVE (NEGATIVE); URINE BLOOD 3+ (NEGATIVE); URINE CLARITY Hazy (Clear); URINE COLOR Yellow (YELLOW); URINE GLUCOSE (UA) 3+ mg/dL (Normal); URINE LEUKOCYTE ESTERASE 2+ Leu/uL (Negative); URINE NITRATE NEGATIVE (NEGATIVE); URINE PROTEIN 1+ mg/dL (NEGATIVE); URINE UROBILINOGEN NORMAL mg/dL (0.2-1.0)
[2017-09-30 14:47] LABS: HCG,QUALITATIVE URINE NEGATIVE (NEGATIVE)
--- NOTE | 2017-09-30 15:17 | C.PDOC ---
History Of Present Illness 46 year old female with Hx of DM, HTN, OH status post 2 stents on 2016 presents to the ED for evaluation of dizziness, lightheaded, 2 episodes of vomit NBNB that started at 11:00 am. Patient reports she took her medications today on an empty stomach which cause her symptoms. Patient states she drank some orange juice which made her feel fine after, patient was given Tylenol in the Ed which improved her headache. Patient reports a week ago she wnet to her PMD for UTI she was prescribed Augmentin 875 twice a day, reports some of her symptoms resolved but still feels like she has a UTI. Patient denies fever, chills, nausea, diarrhea, back pain, abdominal pain. Time Seen by Provider: 09/30/17 14:44 Chief Complaint (Nursing): Dizziness/Lightheaded History Per: Patient History/Exam Limitations: no limitations Onset/Duration Of Symptoms: Hrs Current Symptoms Are (Timing): Gone Number Of Syncopal Episodes: 1 Activity At Onset Of Symptoms: Sitting Associated Symptoms Preceding Syncopal Episode: Lightheadedness Seizure Or Post-ictal Symptoms: None Fall Associated With With Symptoms: No Recent travel outside of the [place]: No Additional History Per: Patient Past Medical History Reviewed: Historical Data, Nursing Documentation, Vital Signs Vital Signs: Last Vital Signs Temp 98.8 F 09/30/17 17:08 Pulse 67 09/30/17 17:08 Resp 18 09/30/17 17:08 BP 132/74 09/30/17 17:08 Pulse Ox 99 09/30/17 17:14 - Medical History PMH: HTN, Hypercholesterolemia, Hyperlipidemia Denies: Chronic Kidney Disease Surgical History: No Surg Hx - [facility] Procedures FLUOROSCOPY OF MULT COR ART USING L OSM CONTRAST (12/30/16) FLUOROSCOPY OF RIGHT AND LEFT HEART USING L OSM CONTRAST (12/30/16) MEASURE CARDIAC SAMPL & PRESSURE, BILATERAL, PERC (12/30/16) Family History: States: Unknown Family Hx - Social History Hx Tobacco Use: No Hx Alcohol Use: No Hx Substance Use: No - Immunization History Hx Tetanus Toxoid Vaccination: No Hx Influenza Vaccination: No Hx Pneumococcal Vaccination: No Review Of Systems Constitutional: Negative for: Fever, Chills Cardiovascular: Negative for: Chest Pain, Palpitations Respiratory: Negative for: Cough, Shortness of Breath Gastrointestinal: Positive for: Vomiting. Negative for: Diarrhea Genitourinary: Positive for: Dysuria Musculoskeletal: Negative for: Back Pain Neurological: Positive for: Dizziness. Negative for: Weakness, Numbness Physical Exam - Physical Exam Appears: Non-toxic, No Acute Distress Skin: Normal Color, Warm, Dry Head: Atraumatic, Normacephalic Eye(s): bilateral: Normal Inspection Nose: No Discharge, No Deformity Oral Mucosa: Moist Neck: Normal ROM, Supple Chest: Symmetrical Cardiovascular: Rhythm Regular, No Murmur Respiratory: Normal Breath Sounds, No Rales, No Rhonchi, No Wheezing Gastrointestinal/Abdominal: Soft, No Tenderness, No Guarding, No Rebound Extremity: Normal ROM, No Pedal Edema, No Calf Tenderness, No Deformity, No Swelling Neurological/Psych: Oriented x3, Normal Speech, Normal Cognition Gait: Steady ED Course And Treatment - Laboratory Results Result Diagrams: 09/30/17 15:48 09/30/17 15:48 ECG: Interpreted By Me, Viewed By Me ECG Rhythm: Sinus Rhythm, R BBB (incomplete), Nonspecific Changes (ST and T wave changes) Interpretation Of ECG: Sinus 87 BPM with left atrial enlargement, incomplete RBBB and non specific ST or T wave changes. Rate From EC O2 Sat by Pulse Oximetry: 99 (On RA) Pulse Ox Interpretation: Normal - Radiology CXR: Viewed By Me, Read By Radiologist CXR Interpretation: Yes: Other (No active pulmonary disease.). No: No Acute Disease, Infiltrates Medical Decision Making Medical Decision Making: Impression : dizziness, lightheadedness Plan: * EKG * CXR * UA * Labs * Urine culture * Tylenol 650 mg PO * Bactrim 1 tab PO On reevaluation patient states she feels better, noted that patient had a white count of 16,000 with + urine patient currently denies any symptoms. Patient is non toxic, afebrile, will be d/c home with diagnosis of complex PRASANNA. Patient's vomit resolved, will give her 1 dose of rochepin in the ED and will prescribe her bactrim for home. Disposition Counseled Patient/Family Regarding: Studies Performed, Diagnosis, Need For Followup, Rx Given - Disposition Disposition: HOME/ ROUTINE Disposition Time: 17:12 Condition: STABLE Additional Instructions: follow up with your doctor in 2 days call to make an appointment return to ER if symptoms worsens or progress take medications as prescribed Prescriptions: Sulfamethoxazole/Trimethoprim [Bactrim DS 800 mg-160 mg] 1 tab PO BID #20 tab Instructions: Urinary Tract Infection in Women (ED) Forms: [facility] (Yi), General Discharge Instructions - Clinical Impression Clinical Impression: Complicated UTI (urinary tract infection) - Scribe Statement The provider has reviewed the documentation as recorded by the Scribe Eduardo Lira All medical record entries made by the Scribe were at my direction and personally dictated by me. I have reviewed the chart and agree that the record accurately reflects my personal performance of the history, physical exam, medical decision making, and the department course for this patient. I have also personally directed, reviewed, and agree with the discharge instructions and disposition.
[2017-09-30] MEDS ORDERED: Tmp-Smz 800 mg-160 mg DS Tab PO STA (15:18)
--- NOTE | 2017-09-30 15:33 | RAD ---
HISTORY: COMPARISON: 07/06/2017. TECHNIQUE: Chest PA and lateral FINDINGS: LINES AND TUBES: None. LUNG AND PLEURA: The lungs are well inflated and clear. HEART AND MEDIASTINUM: The heart is not enlarged. The hilar and mediastinal contours are within normal limits. SKELETAL STRUCTURES: The bony structures are within normal limits for the patient's age. VISUALIZED UPPER ABDOMEN: Normal. OTHER FINDINGS: None. IMPRESSION: No active pulmonary disease.
[2017-09-30] MEDS ORDERED: Tmp-Smz 800 mg-160 mg DS Tab ONE (15:43)
[2017-09-30 15:54] LABS: BASO # 0.1 K/uL (0.0-0.2); BASO % 0.6 % (0.0-2.0); EOS % 0.1 % (0.0-4.0); HEMOGLOBIN 12.5 g/dL (11.0-16.0); LYMPH # 1.4 K/uL (1.0-4.3); LYMPH % 8.3 % (20.0-40.0); MEAN CELL VOLUME 89.8 fL (81.0-99.0); MEAN CORPUSCULAR HEMOGLOBIN 29.6 pg (27.0-31.0); MEAN CORPUSCULAR HGB CONC 32.9 g/dL (33.0-37.0); MONO # 1.2 K/uL (0.0-0.8); MONO % 7.2 % (0.0-10.0); NEUT # 13.8 K/uL (1.8-7.0); NEUT % 83.8 % (50.0-75.0); PLATELET COUNT 253 K/uL (130-400); RBC 4.22 Mil/uL (3.80-5.20); WHITE BLOOD COUNT 16.4 K/uL (4.8-10.8)
[2017-09-30 16:12] LABS: ALBUMIN 4.5 g/dL (3.5-5.0); ALT/SGPT 59 U/L (9-52); AST/SGOT 54 U/L (14-36); BLOOD UREA NITROGEN 9 mg/dL (7-17); CALCIUM 9.9 mg/dl (8.6-10.4); GFR AFRICAN-AMERICAN > 60; GFR NON-AFRICAN AMERICAN > 60
[2017-09-30 16:14] LABS: ALB/GLOB RATIO 0.9 (1.0-2.1)
[2017-09-30 16:15] LABS: BANDS 5 % (0-2); LYMPHOCYTE 6 % (20-40); MONOCYTE 4 % (0-10); NEUTROPHIL 85 % (50-75); PLATELET ESTIMATE NORMAL (NORMAL); TOTAL CELLS COUNTED 100
[2017-09-30 17:09] VITALS: BP 132/74; PULSE 67; RESP 18; TEMP 98.8
[2017-09-30 17:14] VITALS: O2SAT 99
--- NOTE | 2017-10-01 16:19 | CARD ---
APPROVED REPORT EKG Measurement Heart [id number] <Conclusion> Normal sinus rhythm Possible Left atrial enlargement Incomplete right bundle branch block Nonspecific ST and T wave abnormality Prolonged QT Abnormal ECG
== END 2017-09-30 18:04 | disposition home or self-care (01) ==
LOC: C.ER 13:30
DX: N39.0 Urinary tract infection, site not specified (principal); I10 Essential (primary) hypertension; E11.9 Type 2 diabetes mellitus without complications; E78.00 Pure hypercholesterolemia, unspecified
CPT/HCPCS: 71046; 80053; 81001; 84484; 84703; 85025; 87086; 87181; 93005; 96365; 99285; J0696